=== PATIENT | female | born 1955 | race Caucasian/White ===

== ENCOUNTER 2016-07-16 14:05 | Emergency (ER) | payer MEDICAID ==
[~2016-07-16] VITALS: Ht 160 cm; Wt 114.4 kg
[~2016-07-16 14:05] MED LIST: ASPI1TAB69 PO; BLOOD GLUCOSE T1 TES; BUME1TAB PO; DICL100T PO; FAMO1TAB37 PO; GABA300C5 PO; LEVO150T7 PO; LORA10TA PO; METF500T PO; ONETKIT; PRAV20TA PO
[2016-07-16 14:12] VITALS: BP 133/86; PULSE 71; RESP 18; TEMP 98.6; O2SAT 97
--- NOTE | 2016-07-16 14:42 | PD ---
HPI Chief Complaint: Injury Time Seen by Provider: 14:37 Travel History International Travel<30 days: No Contact w/Intl Traveler<30days: No Traveled to known affect area: No History of Present Illness HPI Patient is a 61-year-old female with chief complaint of right knee pain. She states last evening her cat tripped her when she was walking in the door and she fell. She states that she caught herself somewhat on a futon first but did hit on the anterior knee on the ground which was hardwood floor. She is had pain since. No weakness, paresthesias or laxity. She has been able to bear weight but it is painful to do so. Aleve has helped somewhat. This morning the pain radiates up the anterior right thigh and into the right hip. She denies any pain in the abdomen or back. Remote history of patellar chondral repair arthroscopically, no history of hip repair/replacement. She did not hit her head or lose consciousness. PFSH Past Medical History Asthma: Yes High Cholesterol: Yes Diabetes: Yes Patient Takes Glucophage: Yes GERD: Yes Hypertension: Yes Tetanus Vaccination: < 5 Years Influenza Vaccination: Yes ?: Not Menopausal: Yes Past Surgical History Cholecystectomy: Yes Tonsillectomy: Yes (& adenoids) Social History Alcohol Use: No Tobacco Use: No Substance Use: No Allergies-Medications (Allergen,Severity, Reaction): Coded Allergies: Flagyl (Verified Allergy, Severe, Rash, 07/16/16) Reported Meds & Prescriptions Reported Meds & Active Scripts Active Bumetanide 1 Mg Tab 1 Mg PO BID Pepcid (Famotidine) 20 Mg Tab 20 Mg PO BID Metformin (Metformin HCl) 500 Mg Tab 500 Mg PO BIDPC With meals Reported Diclofenac Sodium ER 24 HR (Diclofenac Sodium) 100 Mg Rubio 100 Mg PO DAILY Aspirin 81 Mg Tabdr 81 Mg PO DAILY Gabapentin 300 Mg Cap 300 Mg PO TID Loratadine 10 Mg Tab 10 Mg PO DAILY Pravachol (Pravastatin) 20 Mg Tab 20 Mg PO DAILY Levothyroxine (Levothyroxine Sodium) 150 Mcg Tab 150 Mcg PO DAILY Review of Systems Except as stated in HPI: all other systems reviewed are Neg Physical Exam Narrative GENERAL: Well-developed and well-nourished adult female in no acute distress. SKIN: Warm and dry. Good turgor without tenting. HEAD: Normocephalic and atraumatic. EYES: PERRL bilaterally, 5mm. EOMI bilaterally. No injection or icterus present. No proptosis. Lids without edema or erythema. CARDIOVASCULAR: Regular rate and rhythm without murmurs, rubs, clicks or gallops. Dorsalis pedis and posterior tibial pulses 2+ bilaterally. Cap refill less than 2 seconds distal tip of all toes of right foot. No pedal edema. RESPIRATORY: Clear to auscultation bilaterally with symmetrical rise and fall, no distress or use of accessory muscles. GASTROINTESTINAL: Non-tender, non-distended. Normal bowel sounds all 4 quadrants. No masses or organomegaly present. MUSCULOSKELETAL: Right knee has no appreciable edema however there is significant redundancy of soft tissues making landmarks difficult to assess. Patient's range of motion of flexion and extension is normal, and flexion I'm able to palpate the patella which is point tender. No fibular head tenderness. There is no increased laxity of the knee. Palpation of the calf and femur reveals no tenderness, right ankle has no tenderness or loss of range of motion. Palpation of the right inguinal region does reproduce some pain however there is no leg length discrepancy or rotation. No pelvic instability or pain with pelvic rocking. No pain with Palpation of the lumbosacral spine. Patient freely moving all four extremities spontaneously. Extremities without clubbing, cyanosis, or edema. No obvious deformities. NEUROLOGIC: CN II-XII grossly intact. Awake and alert. 5/5 bilateral hip flexion, hip extension, knee flexion, knee extension, plantar and dorsiflexion. Sensation intact to the distal tip of all toes of right foot. Normal speech. PSYCHIATRIC: Appropriate mood and affect; insight and judgment normal. Data Data Last Documented VS Vital Signs Date Time Temp Pulse Resp B/P Pulse Ox O2 Delivery O2 Flow Rate FiO2 07/16/16 14:12 98.6 71 18 133/86 97 Orders Hip, Uni(Ap&Lat) W Ap Pelvis (07/16/16 14:36) Knee, Complete (4vws) (07/16/16 14:36) Crutches (07/16/16 15:09) Splint Or Brace Apply/Monitor (07/16/16 15:09) MDM Medical Decision Making Medical Screen Exam Complete: Yes Emergency Medical Condition: Yes Differential Diagnosis Knee contusion versus hip strain versus Sprain versus patellar fracture versus knee sprain Narrative Course She is a 7-year-old female with mechanical fall last evening onto the patella on the right. She has point tenderness region. Other point tenderness difficult to access secondary to body habitus. She has normal range of motion and is neurovascularly intact. Sling she's having pain. There is no leg length discrepancy or hip or pelvic instability. She has been weightbearing. Ordered x-ray of the right hip, AP pelvis and right knee. Both x-rays are negative for fracture or dislocation. No joint effusion in the knee. The same patient likely has knee contusion and hip strain. We'll give Anup wrap and recommended to see anti-inflammatories and Tylenol, ice and elevation.See discharge paperwork for further instructions. The plan was discussed with the patient who acknowledged their understanding and agreement. Reinforced the follow-up with primary care is critically important. Patient instructed on emergent conditions that should prompt return to ED. Diagnosis Primary Impression: Contusion of right knee Qualified Code: S80.01XA - Contusion of right knee, initial encounter Additional Impression: Strain of hip Qualified Code: S76.011A - Strain of hip, right, initial encounter Patient Instructions: Contusion in Adults (ED), General Instructions, Hip Sprain (ED) Additional Instructions: OTC ibuprofen or Tylenol as needed Apply ice every 1 to 2 hours as needed for pain Avoid maneuvers that aggravate pain Keep ANUP bandage on while being active or using extremity Use crutches when walking to avoid pressure on joint Elevate when at rest Be aware that may take several weeks for sprains to heal fully Follow-up with PCP in 2-3 days Return to the ED for any acute worsening of symptoms Disposition: 01 DISCHARGE HOME Condition: Stable Price Mead III Jul 16, 2016 14:41
--- NOTE | 2016-07-16 15:06 | RADHPO ---
EXAM DATE/TIME: 07/16/2016 14:50 [facility] COMPARISON: HIP RIGHT (AP&LAT 2/3VWS) W AP PELVIS, July 16, 2016, 14:47. INDICATIONS : Right knee pain after falling. MEDICAL HISTORY : None. SURGICAL HISTORY : None. ENCOUNTER: Initial ACUITY: 2 days PAIN SCORE: 10/10 LOCATION: Right anterior knee FINDINGS: Four view examination of the right knee demonstrates no evidence of fracture or dislocation. Bony mi neralization is normal. The articular surfaces are intact. The suprapatellar soft tissues have a no rmal configuration. CONCLUSION: No acute disease. Jackelyn Wang MD on July 16, 2016 at 15:05 Board Certified Radiologist. This report was verified electronically.
--- NOTE | 2016-07-16 15:06 | RADHPO ---
EXAM DATE/TIME: 07/16/2016 14:47 [facility] COMPARISON: CHEST PA & LAT, March 22, 2014, 15:23. INDICATIONS : Right hip pain after falling. MEDICAL HISTORY : None. SURGICAL HISTORY : None. ENCOUNTER: Initial ACUITY: 2 days PAIN SCORE: 7/10 LOCATION: Right lateral hip FINDINGS: Examination of the right hip was performed with AP Pelvis. The primary and secondary trabecular chandrika amirah of the femoral neck is intact. The hip joint is of normal width without significant sclerosis or bony hypertrophy. The acetabulum is grossly intact. CONCLUSION: No acute disease. Jackelyn Wang MD on July 16, 2016 at 15:04 Board Certified Radiologist. This report was verified electronically.
[2016-08-11] MEDS ORDERED: BUME1TAB PO (18:03)
[2016-09-13] MEDS ORDERED: BUME1TAB PO (11:17)
[2016-10-18] MEDS ORDERED: BUME1TAB PO (13:18)
[2016-10-25] MEDS ORDERED: MEDR4PAK PO (10:45)
[2016-11-11] MEDS ORDERED: PRAV20TA PO (20:20)
[2016-11-16] MEDS ORDERED: BUME1TAB PO (15:06)
[2016-11-18] MEDS ORDERED: SUMA50TA2 PO (15:56)
[2016-12-09] MEDS ORDERED: METF500T PO (12:13)
[2016-12-15] MEDS ORDERED: BUME1TAB PO (15:20)
[2016-12-27] MEDS ORDERED: LYRI75CA PO (14:29)
== END 2016-07-16 15:20 | disposition home or self-care (01) ==
LOC: PHEFT 14:05
DX: S80.01XA Contusion of right knee, initial encounter (principal); S76.011A Strain of muscle, fascia and tendon of right hip, initial encounter; E78.00 Pure hypercholesterolemia, unspecified; E11.9 Type 2 diabetes mellitus without complications; I10 Essential (primary) hypertension; K21.9 Gastro-esophageal reflux disease without esophagitis; W01.0XXA Fall on same level from slipping, tripping and stumbling without subsequent striking against object, initial encounter; Y92.009 Unspecified place in unspecified non-institutional (private) residence as the place of occurrence of the external cause; Y99.8 Other external cause status
CPT/HCPCS: 73502; 73564; 99283; E0113

== ENCOUNTER → 2017-08-18 | Outpatient (CLI) | payer MEDICAID ==
[~2017-08-18] MED LIST changes: +ALBUAER3 INH; +ASPI1TAB57 PO; -ASPI1TAB69 PO; +BECL80AE3 INH; -BLOOD GLUCOSE T1 TES; -DICL100T PO; -GABA300C5 PO; +LOMO2.5T PO; -LORA10TA PO; +LYRI200C PO; +METF1000 PO; -METF500T PO; -ONETKIT; +SUMA50TA2 PO; +ZOFR8TAB4 SL; +ZOSTINJ SQ; +[UNRECOGNIZED DRUG - OTHER] PO
--- NOTE | 2017-08-23 09:28 | RSPPFT ---
DATE OF PROCEDURE: 08/18/17 COMMENTS: Spirometry with a forced vital capacity of 2.5, FEV1 of 1.9, FEV1/FVC ratio at 78%. Slow vital capacity is 86% of predicted. TLC is 85%. Diffusion capacity is 73% of predicted and normal when corrected for alveolar volume. A non-significant response to acutely inhaled bronchodilator noted. IMPRESSION: 1. No evidence of airways obstruction or restriction. 2. Mildly reduced diffusion capacity but normal when corrected for alveolar volume. 3. Non-significant response to acutely inhaled bronchodilator.
== END ==
LOC: PHRSP 07:18
PROVIDERS: ATTEND Internal Medicine Sleep Medicine
DX: R06.89 Other abnormalities of breathing (principal)
CPT/HCPCS: 94060; 94726; 94729

== ENCOUNTER 2017-09-04 14:37 | Emergency (ER) | payer MEDICAID ==
[~2017-09-04] VITALS: Ht 160 cm; Wt 114.1 kg
[~2017-09-04 14:37] MED LIST changes: -LOMO2.5T PO; -ZOFR8TAB4 SL
[2017-09-04 15:09] VITALS: BP 129/60; PULSE 102; RESP 16; TEMP 98.6; O2SAT 98
[2017-09-04] MEDS ORDERED: SODIUM CHLORID 0.9% 500 ML INJ 500 ML IV ONE (16:15)
[2017-09-04] MEDS ORDERED: ONDANSETRON HCL 4 MG/2 ML VIAL IVP ONE (16:15)
[2017-09-04] MEDS ORDERED: SODIUM CHLORIDE 0.9% FLUSH 10 ML FLUSH IV FLUSH PRN (16:15)
[2017-09-04] MEDS ORDERED: MORPHINE SULFATE 4 MG/ML INJ IV PUSH ONE (16:15)
--- NOTE | 2017-09-04 16:15 | PD ---
HPI Chief Complaint: GI Complaint Time Seen by Provider: 16:12 Travel History International Travel<30 days: No Contact w/Intl Traveler<30days: No Traveled to known affect area: No History of Present Illness HPI c/o nausea, vomiting and diarrhea over the past 2 days , no alleviating factors..aggravated by dringking or eating.l...denies any assoc factors ssucha as fever/cough/runny nose/rash/barber/cp/abdpain/backpain.....does however have crampy abd pain, nonrad, diffuse , only occurs with diarrhea episodes, resolves afterwards. States allergy to Flagyl Past medical history significant for hypothyroid, hypertension, hypercholesterolemia, hyperlipidemia, asthma, hiatal hernia, diabetes, cholecystectomy osteotomy and arthroscopic surgeries. PFSH Past Medical History Hx Anticoagulant Therapy: Yes (asa 81mg) Arthritis: Yes (osteo) Asthma: Yes Cardiovascular Problems: Yes (htn on meds) High Cholesterol: Yes Diabetes: Yes (type 2) Patient Takes Glucophage: Yes GERD: Yes Hiatal Hernia: Yes Hypertension: Yes Musculoskeletal: Yes (osteotomy) Respiratory: Yes (asthma) Thyroid Disease: Yes Tetanus Vaccination: > 5 Years Influenza Vaccination: Yes ?: Not Menopausal: Yes Past Surgical History Cholecystectomy: Yes Tonsillectomy: Yes (& adenoids) Social History Alcohol Use: No Tobacco Use: No Substance Use: No Allergies-Medications (Allergen,Severity, Reaction): Coded Allergies: metronidazole (Unverified Allergy, Severe, Rash, 09/04/17) Reported Meds & Prescriptions Reported Meds & Active Scripts Active Lomotil (Diphenoxylate-Atropine) 2.5-0.025 Mg Tab 1 Tab PO Q6H PRN Zofran Odt (Ondansetron Odt) 8 Mg Tab 8 Mg SL Q8H PRN Proair Hfa 8.5 GM Inh (Albuterol Sulfate) 90 Mcg/Act Aer 2 Puff INH Q6H PRN 108 mcg/actuation Sm Loratadine Allergy Rel (Loratadine) 10 Mg Tab 10 Mg PO DAILY Bumetanide 1 Mg Tab 1 Mg PO BID Sumatriptan (Sumatriptan Succinate) 50 Mg Tab 50 Mg PO ONCE PRN If a satisfactory response has not been obtained at 2 hours, a second dose may be administered Pepcid (Famotidine) 20 Mg Tab 20 Mg PO BID Levothyroxine (Levothyroxine Sodium) 150 Mcg Tab 150 Mcg PO DAILY Pravachol (Pravastatin) 20 Mg Tab 20 Mg PO DAILY Qvar Inh (Beclomethasone Dipropionate) 80 Mcg/Act Aero 2 Puff INH BID Metformin (Metformin HCl) 1,000 Mg Tab 1,000 Mg PO BIDPC With meals Lyrica (Pregabalin) 200 Mg Cap 200 Mg PO TID Reported Aspirin 81 (Aspirin) 81 Mg Tabdr 81 Mg PO DAILY Review of Systems General / Constitutional: No: Fever Eyes: No: Visual changes HENT: No: Headaches Cardiovascular: No: Chest Pain or Discomfort Respiratory: No: Shortness of Breath Gastrointestinal: Positive: Nausea, Vomiting, Diarrhea, Abdominal Pain Genitourinary: No: Dysuria Musculoskeletal: No: Pain Skin: No Rash Neurologic: No: Weakness Psychiatric: No: Depression Endocrine: No: Polydipsia Hematologic/Lymphatic: No: Easy Bruising Physical Exam Narrative GENERAL: SKIN: Warm and dry. HEAD: Atraumatic. Normocephalic. EYES: Pupils equal and round. No scleral icterus. No injection or drainage. ENT: No nasal bleeding or discharge. Mucous membranes pink and moist. NECK: Trachea midline. No JVD. CARDIOVASCULAR: Regular rate and rhythm. RESPIRATORY: No accessory muscle use. Clear to auscultation. Breath sounds equal bilaterally. GASTROINTESTINAL: Abdomen soft, non-tender, nondistended. MUSCULOSKELETAL: Extremities without clubbing, cyanosis, or edema. No obvious deformities. NEUROLOGICAL: Awake and alert. No obvious cranial nerve deficits. Motor grossly within normal limits. Five out of 5 muscle strength in the arms and legs. Normal speech. PSYCHIATRIC: Appropriate mood and affect; insight and judgment normal. Data Data Last Documented VS Orders Orders Complete Blood Count With Diff (09/04/17 16:15) Comprehensive Metabolic Panel (09/04/17 16:15) Lipase (09/04/17 16:15) Urinalysis - C+S If Indicated (09/04/17 16:15) Ct Abd/Pel W/O Iv Contrast (09/04/17 16:15) Iv Access Insert/Monitor (09/04/17 16:15) Ecg Monitoring (09/04/17 16:15) Oximetry (09/04/17 16:15) NPO (09/04/17 16:15) Morphine Inj (Morphine Inj) (09/04/17 16:15) Ondansetron Inj (Zofran Inj) (09/04/17 16:15) Sodium Chloride 0.9% Flush (Ns Flush) (09/04/17 16:15) Sodium Chlorid 0.9% 500 Ml Inj (Ns 500 M (09/04/17 16:15) Promethazine Inj (Phenergan Inj) (09/04/17 17:30) Ed Discharge Order (09/04/17 18:50) Labs Laboratory Tests Test 09/04/17 16:40 09/04/17 16:50 Urine Color YELLOW Urine Turbidity SL CLOUDY Urine pH 5.0 Urine Specific [place] GREATER/EQUAL 1.030 Urine Protein NEG mg/dL Urine Glucose (UA) NEG mg/dL Urine Ketones NEG mg/dL Urine Occult Blood TRACE Urine Nitrite NEG Urine Bilirubin NEG Urine Urobilinogen 0.2 MG/DL Urine Leukocyte Esterase NEG Urine WBC 3-5 /hpf Urine Squamous Epithelial Cells 0-5 /hpf Urine Bacteria FEW /hpf Urine Mucus FEW /lpf Microscopic Urinalysis Comment CULT NOT INDICATED White Blood Count 5.6 TH/MM3 Red Blood Count 3.86 MIL/MM3 Hemoglobin 13.1 GM/DL Hematocrit 37.8 % Mean Corpuscular Volume 97.8 FL Mean Corpuscular Hemoglobin 33.9 PG Mean Corpuscular Hemoglobin Concent 34.7 % Red Cell Distribution Width 18.5 % Platelet Count 240 TH/MM3 Mean Platelet Volume 7.9 FL Neutrophils (%) (Auto) 88.5 % Lymphocytes (%) (Auto) 7.5 % Monocytes (%) (Auto) 1.9 % Eosinophils (%) (Auto) 1.7 % Basophils (%) (Auto) 0.4 % Neutrophils # (Auto) 5.0 TH/MM3 Lymphocytes # (Auto) 0.4 TH/MM3 Monocytes # (Auto) 0.1 TH/MM3 Eosinophils # (Auto) 0.1 TH/MM3 Basophils # (Auto) 0.0 TH/MM3 CBC Comment AUTO DIFF Differential Comment AUTO DIFF CONFIRMED Ovalocytes 2+ Blood Urea Nitrogen 14 MG/DL Creatinine 0.99 MG/DL Random Glucose 113 MG/DL Total Protein 8.0 GM/DL Albumin 4.1 GM/DL Calcium Level 8.6 MG/DL Alkaline Phosphatase 153 U/L Aspartate Amino Transf (AST/SGOT) 28 U/L Alanine Aminotransferase (ALT/SGPT) 34 U/L Total Bilirubin 1.0 MG/DL Sodium Level 138 MEQ/L Potassium Level 4.2 MEQ/L Chloride Level 107 MEQ/L Carbon Dioxide Level 26.2 MEQ/L Anion Gap 5 MEQ/L Estimat Glomerular Filtration Rate 57 ML/MIN Lipase 84 U/L MDM Medical Decision Making Medical Screen Exam Complete: Yes Emergency Medical Condition: Yes Medical Record Reviewed: Yes Differential Diagnosis Gastroenteritis versus hepatitis versus pancreatitis Narrative Course CBC shows no leukocytosis, no anemia, and a normal platelet count. UA does not show any evidence of UTI Complete metabolic profile shows normal electrolytes, normal kidney function, normal liver function tests, normal lipase, normal alk phos normal bilirubin. Patient CT shows only minimal diverticulosis without active diverticulitis. A hiatal hernia. Also fat-containing umbilical hernia. And right renal cysts as per radiology report. Diagnosis Primary Impression: GASTROENTERITIS Patient Instructions: Gastroenteritis (ED), General Instructions Scripts Diphenoxylate-Atropine (Lomotil) 2.5-0.025 Mg Tab 1 TAB PO Q6H Y for DIARRHEA, #8 TAB 0 Refills Prov: Broderick Nava MD 09/04/17 Ondansetron Odt (Zofran Odt) 8 Mg Tab 8 MG SL Q8H Y for NAUSEA OR VOMITING, #15 TAB 0 Refills Prov: Broderick Nava MD 09/04/17 Disposition: 01 DISCHARGE HOME Condition: Stable Broderick Nava MD Sep 04, 2017 16:15
[2017-09-04 17:01] LABS: BILIRUBIN, URINE NEG (NEG); BLOOD, URINE TRACE (NEG); GLUCOSE,URINE NEG (NEG); KETONE, URINE NEG (NEG); NITRITE,URINE NEG (NEG); URINE COLOR YELLOW (YELLW/STRAW); URINE LEUKOCYTE ESTERASE NEG (NEG)
[2017-09-04 17:03] LABS: BASOPHIL % 0.4 % (0.0-2.0); EOSINOPHIL # 0.1 TH/MM3 (0-0.4); EOSINOPHIL % 1.7 % (0.0-4.0); HEMATOCRIT 37.8 % (35.0-46.0); HEMOGLOBIN 13.1 GM/DL (11.6-15.3); LYMPH % 7.5 % (9.0-44.0); LYMPHOCYTE # 0.4 TH/MM3 (1.0-4.8); MEAN CELL VOLUME 97.8 FL (80.0-100.0); MEAN CORPUSCULAR HEMOGLOBIN 33.9 PG (27.0-34.0); MEAN CORPUSCULAR HGB CONC 34.7 % (32.0-36.0); MEAN PLATELET VOLUME 7.9 FL (7.0-11.0); MONO % 1.9 % (0.0-8.0); MONOCYTE # 0.1 TH/MM3 (0-0.9); NEUT % 88.5 % (16.0-70.0); PLATELET COUNT 240 TH/MM3 (150-450); RED BLOOD COUNT 3.86 MIL/MM3 (4.00-5.30); RED CELL DISTRIBUTION WIDTH 18.5 % (11.6-17.2); WHITE BLOOD COUNT 5.6 TH/MM3 (4.0-11.0)
[2017-09-04 17:05] VITALS: BP 148/86; PULSE 87; RESP 18; O2SAT 99
[2017-09-04 17:08] LABS: BACTERIA, URINE FEW /hpf; MUCUS URINE FEW /lpf (OCC); SQUAMOUS EPITHELIAL CELL URINE 0-5 /hpf (0-5)
[2017-09-04 17:12] LABS: CHLORIDE 107 MEQ/L (98-107); SODIUM (NA) 138 MEQ/L (136-145)
[2017-09-04 17:14] VITALS: O2SAT 98
[2017-09-04 17:16] LABS: ALBUMIN 4.1 GM/DL (3.4-5.0); BICARBONATE 26.2 MEQ/L (21.0-32.0); CALCIUM 8.6 MG/DL (8.5-10.1); GLUCOSE,RANDOM 113 MG/DL (74-106)
[2017-09-04 17:17] LABS: BLOOD UREA NITROGEN 14 MG/DL (7-18)
[2017-09-04 17:19] LABS: ALT (GPT) 34 U/L (10-53); AST (GOT) 28 U/L (15-37); CREATININE 0.99 MG/DL (0.50-1.00); GLOMERULAR FILTRATION RATE 57 ML/MIN (>89)
[2017-09-04 17:22] LABS: ALKALINE PHOSPHATASE 153 U/L (45-117)
--- NOTE | 2017-09-04 17:22 | RADRPT ---
EXAM DATE/TIME: 09/04/2017 16:52 [facility] COMPARISON: No previous studies available for comparison. INDICATIONS : Epigastric pain. ORAL CONTRAST: No oral contrast ingested. RADIATION DOSE: 24.79 CTDIvol (mGy) MEDICAL HISTORY : Hernia, hiatal. Hypertension. Diabetes. SURGICAL HISTORY : Cholecystectomy. ENCOUNTER: Initial ACUITY: 1 week PAIN SCALE: 5/10 LOCATION: upper quadrant TECHNIQUE: Volumetric scanning of the abdomen and pelvis was performed. Using automated exposure control and ad justment of the mA and/or kV according to patient size, radiation dose was kept as low as reasonably achievable to obtain optimal diagnostic quality images. DICOM format image data is available electro nically for review and comparison. FINDINGS: Patient is status post cholecystectomy. The lung bases are clear. The osseous structures are intact. No pleural or pericardial effusions a small sliding hiatal hernia is noted. Liver, pancreas, spleen, adrenals, left kidney unremarkable. Exophytic cyst right midpole kidney posteriorly measuring 1.8 cm. No adenopathy or aneurysm. Urinary bladder, uterus and ovaries are unremarkable. A few scattered col onic diverticuli are present. Appendix normal. Fat containing hernia. CONCLUSION: 1. Minimal diverticulosis without diverticulitis. 2. Hiatal hernia. 3. Fat containing umbilical hernia. 4. Right renal cysts. Eligio Zavala MD on September 04, 2017 at 17:19 Board Certified Radiologist. This report was verified electronically.
[2017-09-04] MEDS ORDERED: PROMETHAZINE INJ 25 MG/ML VIAL IM ONE (17:30)
[2017-09-04 18:00] LABS: OVALOCYTES 2+ (NORMAL)
[2017-09-04] MEDS ORDERED: ZOFR8TAB4 SL (18:33)
[2017-09-04] MEDS ORDERED: LOMO2.5T PO (18:33)
== END 2017-09-04 19:05 | disposition home or self-care (01) ==
LOC: PHED 14:37
DX: K52.9 Noninfective gastroenteritis and colitis, unspecified (principal); M19.90 Unspecified osteoarthritis, unspecified site; J45.909 Unspecified asthma, uncomplicated; I10 Essential (primary) hypertension; E78.00 Pure hypercholesterolemia, unspecified; E07.9 Disorder of thyroid, unspecified; E11.9 Type 2 diabetes mellitus without complications; Z79.84 Long term (current) use of oral hypoglycemic drugs; Z79.82 Long term (current) use of aspirin
CPT/HCPCS: 74176; 80053; 81001; 83690; 85025; 96361; 96372; 96374; 96375; 99284; J2270; J2405; J2550; J7040

== ENCOUNTER 2017-12-25 16:57 | Emergency (ER) | payer MEDICAID ==
[~2017-12-25] VITALS: Ht 160 cm; Wt 130.0 kg
[~2017-12-25 16:57] MED LIST changes: +LOMO2.5T PO; +ZOFR8TAB4 SL; -ZOSTINJ SQ
[2017-12-25 17:02] VITALS: BP 101/74; PULSE 95; RESP 18; TEMP 98.1; O2SAT 95
[2017-12-25] MEDS ORDERED: XARE20TA PO (17:27)
[2017-12-25] MEDS ORDERED: ACETAMINOPHEN/HYDROcodone 325 MG/5 MG TAB PO ONE (17:45)
--- NOTE | 2017-12-25 18:13 | PD ---
HPI Chief Complaint: Injury Time Seen by Provider: 17:07 Travel History International Travel<30 days: No Contact w/Intl Traveler<30days: No Traveled to known affect area: No History of Present Illness HPI 76-year-old female presents the ED for evaluation of 10/10 right knee pain. Onset around 3 this afternoon the patient twisted and fell while attempting to get out of the car. She endorses hearing and feeling a "pop" at the time. She has been minimally ambulatory on the knee. Denies any previous injury to the area. Denies numbness, tingling, weakness, limitations to range of motion or giving way. Denies any her head or loss of consciousness. Treated at home with Tylenol with no improvement of symptoms. PFSH Past Medical History Hx Anticoagulant Therapy: Yes Arthritis: Yes (osteo) Asthma: Yes Cardiovascular Problems: Yes (htn on meds) High Cholesterol: Yes Diabetes: Yes (type 2) Patient Takes Glucophage: Yes Deep Vein Thrombosis: Yes (LLE) GERD: Yes Hiatal Hernia: Yes Hypertension: Yes Musculoskeletal: Yes (osteotomy) Respiratory: Yes (asthma, sleep apnea) Thyroid Disease: Yes Tetanus Vaccination: Unknown Influenza Vaccination: Yes ?: Not Menopausal: Yes Past Surgical History Cholecystectomy: Yes Tonsillectomy: Yes (& adenoids) Social History Alcohol Use: No Tobacco Use: No Substance Use: No Allergies-Medications (Allergen,Severity, Reaction): Coded Allergies: metronidazole (Unverified Allergy, Severe, Rash, 12/25/17) Reported Meds & Prescriptions Reported Meds & Active Scripts Active Bariatric Rollator/Extra (Device) 1 Mis Mis Ea .XX DIRECTED Tylenol (Acetaminophen) 325 Mg Tab 650 Mg PO Q6H PRN [place] (Hydrocodone-Acetaminophen) 5 Mg-325 Mg Tab 1 Tab PO Q6H PRN Sm Loratadine Allergy Rel (Loratadine) 10 Mg Tab 10 Mg PO DAILY Bumetanide 1 Mg Tab 1 Mg PO BID Sumatriptan (Sumatriptan Succinate) 50 Mg Tab 50 Mg PO ONCE PRN If a satisfactory response has not been obtained at 2 hours, a second dose may be administered Pepcid (Famotidine) 20 Mg Tab 20 Mg PO BID Levothyroxine (Levothyroxine Sodium) 150 Mcg Tab 150 Mcg PO DAILY Pravachol (Pravastatin) 20 Mg Tab 20 Mg PO DAILY Qvar Inh (Beclomethasone Dipropionate) 80 Mcg/Act Aero 2 Puff INH BID Metformin (Metformin HCl) 1,000 Mg Tab 1,000 Mg PO BIDPC With meals Lyrica (Pregabalin) 200 Mg Cap 200 Mg PO TID Reported Xarelto (Rivaroxaban) 20 Mg Tab 20 Mg PO DAILY Review of Systems Except as stated in HPI: all other systems reviewed are Neg Physical Exam Narrative GENERAL: Morbidly obese white female in no acute distress. SKIN: Focused skin assessment warm/dry. HEAD: Normocephalic. EYES: No scleral icterus. No injection or drainage. NECK: Supple, trachea midline. No JVD or lymphadenopathy. CARDIOVASCULAR: Regular rate and rhythm without murmurs, gallops, or rubs. RESPIRATORY: Breath sounds equal bilaterally. No accessory muscle use. GASTROINTESTINAL: Abdomen soft, non-tender, nondistended. MUSCULOSKELETAL: No cyanosis, or edema. FOCUSED RIGHT LOWER EXTREMITY EXAM: 2+ DP pulse. Well-healed arthroscopic scars on the anterior aspect of the knee. Tenderness to palpation in the patella. Tenderness to palpation of the lateral knee joint. Varus and valgus stress testing positive. Patient is able to extend to 0 and flex to nearly 90 , this elicits pain. Drawer testing negative. Neurovascularly intact distally. BACK: Nontender without obvious deformity. No CVA tenderness. Data Data Last Documented VS Vital Signs Date Time Temp Pulse Resp B/P (MAP) Pulse Ox O2 Delivery O2 Flow Rate FiO2 12/25/17 17:23 Room Air 12/25/17 17:02 98.1 95 18 101/74 (83) 95 Orders Orders Acetamin-Hydrocod 325-5 Mg ([place] 5-325 (12/25/17 17:45) Knee, Complete (4vws) (12/25/17 17:40) Ice/Cold Pack (12/25/17 17:40) Anup Bandage (12/25/17 18:55) Ed Discharge Order (12/25/17 19:00) MDM Medical Decision Making Medical Screen Exam Complete: Yes Emergency Medical Condition: Yes Differential Diagnosis Patellar fracture versus tibial plateau fracture versus internal derangement versus other Narrative Course 76-year-old female presents the ED for evaluation of 10/10 right knee pain. Onset around 3 this afternoon the patient twisted and fell while attempting to get out of the car. She reports feeling hearing a pop at the time. Vitals reviewed. Physical exam reveals a morbidly obese white female no acute distress. She does have tenderness over the lateral aspect of the knee and varus/valgus stress testing is positive. Ice pack was applied. Patient was administered 5 mg [place]. X-ray reveals no acute bony injury. I suspect internal derangement. However given the patient's body habitus a knee immobilizer is not possible at this time. The knee was wrapped with 2 six-inch aces. Patient's prescribed a bariatric walker, short course of [place]. She is instructed to follow-up with the orthopedist tomorrow for further evaluation. She indicated understanding the instructions and is agreeable to care plan. The patient stable discharged home. Diagnosis Primary Impression: Right knee pain Qualified Codes: M25.561 - Pain in right knee Additional Impression: Internal derangement of right knee Referrals: Austyn Baez MD Additional Instructions: Rest, ice, elevate the extremity. Apply ice no longer than 10-15 minutes per hour a few times a day. Extra strength Tylenol as prescribed, as needed for pain rated 1 through 5. [place] as prescribed as needed for pain rated 6 through 10. Minimal ambulation with the walker at home. Call Dr. Baez's office tomorrow for an appointment this week. Follow up with orthopedist. Return to the ED for worsening symptoms or any urgent or emergent medical condition. Med/Other Pt SpecificInfo: Prescription(s) given Scripts Bariatric Rollator/Extra (Bariatric Rollator/Extra) 1 Mis Mis EA .XX DIRECTED, #1 Prov: Cristine Juarez MD 12/25/17 Acetaminophen (Tylenol) 325 Mg Tab 650 MG PO Q6H Y for PAIN SCALE 1 TO 5, #15 TAB 0 Refills Prov: Cristine Juarez MD 12/25/17 Hydrocodone-Acetaminophen ([place]) 5 Mg-325 Mg Tab 1 TAB PO Q6H Y for PAIN, #12 TAB 0 Refills Prov: Cristine Juarez MD 12/25/17 Disposition: 01 DISCHARGE HOME Condition: Stable Catalina Aranda Dec 25, 2017 18:13
--- NOTE | 2017-12-25 18:52 | RADRPT ---
EXAM DATE: 12/25/2017 6:02 PM EDT AGE/SEX: 62 years / Female INDICATIONS: Twisted right knee CLINICAL DATA: This is the patient's initial encounter. Patient reports that signs and symptoms have been present for 1 day and indicates a pain score of 9/10. MEDICAL/SURGICAL HISTORY: Diabetes mellitus type II. asthma None. COMPARISON: [facility], KNEE RIGHT COMPLETE (4VWS), 07/16/2016. . FINDINGS: Bony structures are intact and in normal alignment. Moderate osteoarthritis. Osseous density is chicho l. Soft tissues are unremarkable. No radiopaque foreign bodies seen. CONCLUSION: Moderate osteoarthritis. No acute bony abnormality. Electronically signed by: Abisai Franks MD 12/25/2017 6:50 PM EDT
[2017-12-25] MEDS ORDERED: NORC5TAB PO ×2 (18:56→18:58)
[2017-12-25] MEDS ORDERED: TYLE325T PO ×2 (18:57→18:58)
[2017-12-25] MEDS ORDERED: BARIATRIC ROLLA1 MIS (19:07)
== END 2017-12-25 19:16 | disposition home or self-care (01) ==
LOC: PHEFT 16:57
DX: M23.91 Unspecified internal derangement of right knee (principal); J45.909 Unspecified asthma, uncomplicated; E78.00 Pure hypercholesterolemia, unspecified; E11.9 Type 2 diabetes mellitus without complications; K21.9 Gastro-esophageal reflux disease without esophagitis; I10 Essential (primary) hypertension; M19.90 Unspecified osteoarthritis, unspecified site; W18.39XA Other fall on same level, initial encounter; Z86.718 Personal history of other venous thrombosis and embolism; Z79.84 Long term (current) use of oral hypoglycemic drugs; Z79.01 Long term (current) use of anticoagulants
CPT/HCPCS: 73564; 99283

== ENCOUNTER 2018-01-05 12:10 | Inpatient (IN) ==
[2018-01-05 18:49] LABS: Activated Partial Thrombo Time 27.5 sec (24.3-30.1); Prothrombin Time 10.3 sec (9.8-11.6)
[2018-01-05 18:51] LABS: Baso % (Auto) 0.4 % (0.0-2.0); Eos # (Auto) 0.1 th/mm3 (0.0-0.4); Eos % (Auto) 2.5 % (0.0-4.0); Hematocrit 31.6 % (35.0-46.0); Hemoglobin 10.9 gm/dL (11.6-15.3); Lymph # (Auto) 1.3 th/mm3 (1.0-4.8); Lymph % (Auto) 25.7 % (9.0-44.0); Mean Corpuscular HGB Conc 34.6 % (32.0-36.0); Mean Corpuscular Hemoglobin 31.8 pg (27.0-34.0); Mean Corpuscular Volume 91.8 fL (80.0-100.0); Mean Platelet Volume 8.4 fL (7.0-11.0); Mono # (Auto) 0.3 th/mm3 (0.0-0.9); Mono % (Auto) 6.2 % (0.0-8.0); Neut # (Auto) 3.4 th/mm3 (1.8-7.7); Neut % (Auto) 65.2 % (16.0-70.0); Platelet Count 238 th/mm3 (150-450); Red Blood Count 3.44 mil/mm3 (4.00-5.30); Red Cell Distribution Width 15.7 % (11.6-17.2); White Blood Count 5.2 th/mm3 (4.0-11.0)
[2018-01-05 18:58] LABS: Albumin 3.6 g/dL (3.4-5.0); Anion Gap 11 meq/L (5-15); Aspartate Aminotransferase 17 U/L (15-37); Blood Urea Nitrogen 13 mg/dL (7-18); Calcium 8.6 mg/dL (8.5-10.1); Chloride 107 meq/L (98-107); Glomerular Filtration Rate 71 mL/min (>89); Glucose,Random 78 mg/dL (74-106); Lipase 39 U/L (73-393); Potassium 3.4 meq/L (3.5-5.1); Sodium 143 meq/L (136-145)
[2018-01-05 18:59] LABS: Alanine Aminotransferase 26 U/L (10-53)
[2018-01-05 19:01] LABS: Alkaline Phosphatase 131 U/L (45-117); Total Protein 7.3 g/dL (6.4-8.2)
--- NOTE | 2018-01-05 19:02 | ED ---
HPI General Chief complaint: GI Bleed Stated complaint: gi Time Seen by Provider: 01/05/18 17:21 Source: patient Mode of arrival: ambulatory Limitations: no limitations History of Present Illness HPI narrative: 62-year-old female presents emergency department for evaluation of 2 episodes of bloody stools that occurred this morning. Says that she was in the hospital couple of days ago for nausea and vomiting, had imaging and labs and was discharged home. Says that she felt great up until this morning when she had the bloody stools. She denies fever, chills, nausea, vomiting, diarrhea. She denies abdominal pain. She says that there was no stool in the toilet when she had a bowel movement and it was only blood. She also noticed a "blood clot" when wiping. She stopped the Xarelto on Tuesday because of the symptoms she had several days ago. Note that she is taken Xarelto for DVT that occured in October after a flight. She has had a decreased appetite today. She denies lightheadedness or dizziness. Related Data Home Medications Medication Instructions Recorded Confirmed albuterol sulfate [ProAir HFA] 2 puff INHALATION Q6H PRN 01/02/18 01/05/18 beclomethasone dipropionate [Qvar 2 puff INHALATION QAM 01/02/18 01/05/18 RediHaler] bumetanide 1 mg PO BID 01/02/18 01/05/18 coenzyme Q10 [CoQ-10] 100 mg PO DAILY 01/02/18 01/05/18 famotidine 20 mg PO BID 01/02/18 01/05/18 levothyroxine 150 mcg PO DAILY 01/02/18 01/05/18 loratadine 10 mg PO DAILY 01/02/18 01/05/18 metformin 1,000 mg PO BID 01/02/18 01/05/18 pravastatin 20 mg PO DAILY 01/02/18 01/05/18 pregabalin [Lyrica] 200 mg PO TID 01/02/18 01/05/18 sumatriptan succinate 50 mg PO Q2-4H PRN 01/02/18 01/05/18 rivaroxaban 20 mg PO DAILY 01/05/18 01/05/18 Allergies Allergy/AdvReac Type Severity Reaction Status Date / Time metronidazole Allergy Intermediate Rash Verified 01/05/18 12:22 Review of Systems Except as stated in HPI: all other systems reviewed are negative [facility] Medical History Medical History DVT (deep venous thrombosis) (Chronic) GERD (gastroesophageal reflux disease) (Acute) Hyperlipidemia (Acute) Anxiety (Acute) Asthma (Acute) Back pain (Acute) Cataract (Acute) Chronic kidney disease (Acute) Depression (Acute) Diabetes mellitus (Acute) Hypertension (Acute) Hypothyroid (Acute) Lymphedema (Acute) Neuropathy (Acute) Surgical History Surgical History History of cholecystectomy (Resolved) Social History Social History Substance History: No History of Abuse Second Hand Smoke Exposure: No Smoking Status: Former smoker Tobacco Type: Cigarettes How Often Do You Have a Drink Containing Alcohol: Never Recent Travel in [facility] within the Last 8 Weeks: No Recent Out of Country Travel within the Last 8 Weeks: No Immunization History Tetanus Immunization: >5 Years Hx Influenza Vaccine This Season: Yes Exam Narrative Exam Narrative: GENERAL: Well-developed, well-nourished in no apparent distress SKIN: Focused skin assessment warm/dry. Decubitus area with intertrigo versus breakdown of skin possibly decubitus ulcer stage I HEAD: Atraumatic. Normocephalic. EYES: Pupils equal and round. No scleral icterus. No injection or drainage. ENT: No nasal bleeding or discharge. Mucous membranes pink and moist. NECK: Trachea midline. No JVD. CARDIOVASCULAR: Regular rate and rhythm. No murmur appreciated. RESPIRATORY: No accessory muscle use. Clear to auscultation. Breath sounds equal bilaterally. GASTROINTESTINAL: Abdomen soft, non-tender, nondistended. Hepatic and splenic margins not palpable. Rectal exam performed with nurseServando in the room. Upon initial examination there is some margarita bright red blood at the rectum. Stool is black heme positive MUSCULOSKELETAL: No obvious deformities. No clubbing. No cyanosis. No edema. No TTP to BLE NEUROLOGICAL: Awake and alert. No obvious cranial nerve deficits. Motor grossly within normal limits. Normal speech. PSYCHIATRIC: Appropriate mood and affect; insight and judgment normal. GI Rectal Exam: heme positive stool (black stool, heme positive) Course Initial Documented Vital Signs Temperature 97.8 F 01/05/18 12:18 Pulse Rate 84 01/05/18 12:18 Respiratory Rate 18 01/05/18 12:18 Blood Pressure 173/70 H 01/05/18 12:18 Pulse Oximetry 95 01/05/18 12:18 Last Documented Vital Signs Temperature 98.0 F 01/06/18 08:00 Pulse Rate 84 01/06/18 08:00 Respiratory Rate 20 01/06/18 08:00 Blood Pressure 148/79 H 01/06/18 08:00 Pulse Oximetry 95 01/06/18 08:00 Medical Decision Making [facility] Narrative Medical decision making narrative: 62y female with a history of a provoked DVT presents emergency department for the second time this week for evaluation of 2 episodes of bright red bleeding per rectum. Says she had a bowel movement today which was bright red and is concerned because she has been on Xarelto for the last several months. She denies fever, chills, nausea, vomiting, diarrhea, lightheadedness, dizziness, abdominal pain. Says she stopped her Xarelto Tuesday because of the abdominal pain she had previously. She has had a decreased appetite over the last few days. Vital signs are stable. Physical exam findings are unremarkable except for the rectal exam. No obvious external hemorrhoids present. Hemoccult positive stool. Black stool. Blood present at the perianal area. After review the EMR, it appears the patient was here couple days ago for nausea , vomiting and abdominal pain. Ct performed and found scattered diverticulosis, benign right renal cyst. CBC with mild anemia. Labs are stable but concerning because of the rectal bleeding and history of Xarelto use. I discussed with my attending as well who recommended admission for monitoring. I spoke with Dr. Smart who agreed to the admission. Differential Diagnosis Differential Diagnosis: Hemorrhoids, colitis, diarrhea Lab Data Result diagrams: 01/06/18 07:50 01/06/18 02:01 Lab Results 01/05/18 01/05/18 01/05/18 Range/Units 17:40 17:40 17:40 WBC 5.2 (4.0-11.0) th/mm3 RBC 3.44 L (4.00-5.30) mil/mm3 Hgb 10.9 L (11.6-15.3) gm/dL Hct 31.6 L (35.0-46.0) % MCV 91.8 (80.0-100.0) fL MCH 31.8 (27.0-34.0) pg MCHC 34.6 (32.0-36.0) % RDW 15.7 (11.6-17.2) % Plt Count 238 (150-450) th/mm3 MPV 8.4 (7.0-11.0) fL Neut % (Auto) 65.2 (16.0-70.0) % Lymph % (Auto) 25.7 (9.0-44.0) % [place] % (Auto) 6.2 (0.0-8.0) % Eos % (Auto) 2.5 (0.0-4.0) % Baso % (Auto) 0.4 (0.0-2.0) % Neut # (Auto) 3.4 (1.8-7.7) th/mm3 Lymph # (Auto) 1.3 (1.0-4.8) th/mm3 [place] # (Auto) 0.3 (0.0-0.9) th/mm3 Eos # (Auto) 0.1 (0.0-0.4) th/mm3 Baso # (Auto) 0.0 (0.0-0.2) th/mm3 WBC Differential . Differential Comment Auto diff final PT 10.3 (9.8-11.6) sec INR 1.0 Ratio APTT 27.5 (24.3-30.1) sec Sodium 143 (136-145) meq/L Potassium 3.4 L (3.5-5.1) meq/L Chloride 107 (98-107) meq/L Carbon Dioxide 25.0 (21.0-32.0) meq/L Anion Gap 11 (5-15) meq/L BUN 13 (7-18) mg/dL Creatinine 0.82 (0.50-1.00) mg/dL Estimated GFR 71 L (>89) mL/min Random Glucose 78 (74-106) mg/dL Calcium 8.6 (8.5-10.1) mg/dL Total Bilirubin 1.4 H (0.2-1.0) mg/dL AST 17 (15-37) U/L ALT 26 (10-53) U/L Alkaline Phosphatase 131 H (45-117) U/L Total Protein 7.3 D (6.4-8.2) g/dL Albumin 3.6 (3.4-5.0) g/dL Lipase 39 L (73-393) U/L Urine Color (Yellw/Straw) Urine Clarity (Clear) Urine pH (5.0-8.5) Ur Specific Parsons (1.002-1.035) Urine Protein (Neg-Trace) mg/dL Urine Glucose (UA) (Negative) mg/dL Urine Ketones (Negative) mg/dL Urine Occult Blood (Negative) Urine Nitrate (Negative) Urine Bilirubin (Negative) Urine Urobilinogen (Less than 2) mg/dL Ur Leukocyte Esterase (Negative) Urine WBC (0-5) /hpf Ur Squamous Epith Cells (0-5) /hpf Amorphous Sediment (None) /hpf Urine Bacteria (None) /hpf Urine Mucus (Occasional) /lpf Micro UA Comment Urine Culture Comments Blood Type Blood Type Recheck Antibody Screen 01/05/18 01/06/18 01/06/18 Range/Units 17:40 02:01 02:01 WBC 5.3 (4.0-11.0) th/mm3 RBC 3.38 L (4.00-5.30) mil/mm3 Hgb 10.5 L (11.6-15.3) gm/dL Hct 30.5 L (35.0-46.0) % MCV 90.3 (80.0-100.0) fL MCH 31.2 (27.0-34.0) pg MCHC 34.5 (32.0-36.0) % RDW 15.7 (11.6-17.2) % Plt Count 245 (150-450) th/mm3 MPV 7.9 (7.0-11.0) fL Neut % (Auto) 62.4 (16.0-70.0) % Lymph % (Auto) 28.3 (9.0-44.0) % [place] % (Auto) 6.0 (0.0-8.0) % Eos % (Auto) 2.9 (0.0-4.0) % Baso % (Auto) 0.4 (0.0-2.0) % Neut # (Auto) 3.3 (1.8-7.7) th/mm3 Lymph # (Auto) 1.5 (1.0-4.8) th/mm3 [place] # (Auto) 0.3 (0.0-0.9) th/mm3 Eos # (Auto) 0.2 (0.0-0.4) th/mm3 Baso # (Auto) 0.0 (0.0-0.2) th/mm3 WBC Differential . Differential Comment Auto diff final PT 10.7 (9.8-11.6) sec INR 1.1 Ratio APTT (24.3-30.1) sec Sodium (136-145) meq/L Potassium (3.5-5.1) meq/L Chloride (98-107) meq/L Carbon Dioxide (21.0-32.0) meq/L Anion Gap (5-15) meq/L BUN (7-18) mg/dL Creatinine (0.50-1.00) mg/dL Estimated GFR (>89) mL/min Random Glucose (74-106) mg/dL Calcium (8.5-10.1) mg/dL Total Bilirubin (0.2-1.0) mg/dL AST (15-37) U/L ALT (10-53) U/L Alkaline Phosphatase (45-117) U/L Total Protein (6.4-8.2) g/dL Albumin (3.4-5.0) g/dL Lipase (73-393) U/L Urine Color (Yellw/Straw) Urine Clarity (Clear) Urine pH (5.0-8.5) Ur Specific Parsons (1.002-1.035) Urine Protein (Neg-Trace) mg/dL Urine Glucose (UA) (Negative) mg/dL Urine Ketones (Negative) mg/dL Urine Occult Blood (Negative) Urine Nitrate (Negative) Urine Bilirubin (Negative) Urine Urobilinogen (Less than 2) mg/dL Ur Leukocyte Esterase (Negative) Urine WBC (0-5) /hpf Ur Squamous Epith Cells (0-5) /hpf Amorphous Sediment (None) /hpf Urine Bacteria (None) /hpf Urine Mucus (Occasional) /lpf Micro UA Comment Urine Culture Comments Blood Type B Positive Blood Type Recheck Required Antibody Screen Negative 01/06/18 01/06/18 01/06/18 Range/Units 02:01 02:40 07:50 WBC 4.6 (4.0-11.0) th/mm3 RBC 3.22 L (4.00-5.30) mil/mm3 Hgb 10.1 L (11.6-15.3) gm/dL Hct 29.1 L (35.0-46.0) % MCV 90.6 (80.0-100.0) fL MCH 31.4 (27.0-34.0) pg MCHC 34.7 (32.0-36.0) % RDW 15.7 (11.6-17.2) % Plt Count 234 (150-450) th/mm3 MPV 8.4 (7.0-11.0) fL Neut % (Auto) 62.9 (16.0-70.0) % Lymph % (Auto) 25.6 (9.0-44.0) % [place] % (Auto) 7.4 (0.0-8.0) % Eos % (Auto) 3.5 (0.0-4.0) % Baso % (Auto) 0.6 (0.0-2.0) % Neut # (Auto) 2.9 (1.8-7.7) th/mm3 Lymph # (Auto) 1.2 (1.0-4.8) th/mm3 [place] # (Auto) 0.3 (0.0-0.9) th/mm3 Eos # (Auto) 0.2 (0.0-0.4) th/mm3 Baso # (Auto) 0.0 (0.0-0.2) th/mm3 WBC Differential . Differential Comment Auto diff final PT (9.8-11.6) sec INR Ratio APTT (24.3-30.1) sec Sodium 144 (136-145) meq/L Potassium 3.2 L (3.5-5.1) meq/L Chloride 108 H (98-107) meq/L Carbon Dioxide 26.1 (21.0-32.0) meq/L Anion Gap 10 (5-15) meq/L BUN 13 (7-18) mg/dL Creatinine 0.75 (0.50-1.00) mg/dL Estimated GFR 79 L (>89) mL/min Random Glucose 91 (74-106) mg/dL Calcium 8.2 L (8.5-10.1) mg/dL Total Bilirubin 1.5 H (0.2-1.0) mg/dL AST 16 (15-37) U/L ALT 26 (10-53) U/L Alkaline Phosphatase 121 H (45-117) U/L Total Protein 6.8 (6.4-8.2) g/dL Albumin 3.8 (3.4-5.0) g/dL Lipase 48 L (73-393) U/L Urine Color Colorless (Yellw/Straw) Urine Clarity Clear (Clear) Urine pH 5.0 (5.0-8.5) Ur Specific [place] 1.005 (1.002-1.035) Urine Protein Negative (Neg-Trace) mg/dL Urine Glucose (UA) Negative (Negative) mg/dL Urine Ketones Trace H (Negative) mg/dL Urine Occult Blood Small H (Negative) Urine Nitrate Negative (Negative) Urine Bilirubin Negative (Negative) Urine Urobilinogen Less than 2 (Less than 2) mg/dL Ur Leukocyte Esterase Trace H (Negative) Urine WBC Less than 1 (0-5) /hpf Ur Squamous Epith Cells 1 (0-5) /hpf Amorphous Sediment Rare H (None) /hpf Urine Bacteria Rare H (None) /hpf Urine Mucus Few H (Occasional) /lpf Micro UA Comment Culture not ind Urine Culture Comments Culture not ind Blood Type Blood Type Recheck Antibody Screen Discharge Plan Discharge Disposition Patient Disposition: 30 Still Patient Discharge Condition Condition: Stable Discharge Details Discharge Problem: Bright red rectal bleeding, Hx of shelter use of blood thinners Physicians Team ED Provider: Evan Lyon ED Midlevel Provider: Vida Drew Primary Care Provider: Pramod Parisi Attending Provider: Reji Gan Other Providers: Angela Amezcua Status ED Status: Left Department Discharge Information Discharge Date/Time: 01/06/18 00:00
--- NOTE | 2018-01-05 21:53 | P.HPFP ---
History of Present Illness Service: Medicine, COUNTS INCLUDE 234 BEDS AT THE [facility] Primary Care Physician: Pramod Parisi MD, R3 History of Present Illness: 62-year-old female, past medical history of DVT, severe GERD, and hilar hernia presents with bright red blood per rectum 2 episodes today following 3 days of vomiting and diarrhea. Pt got up and went to the bathroom this morning and saw fresh blood in the toilet, at 11:00AM and 11:30AM. Denies any pain with this event. She has been sick with diarrhea and vomiting since Tuesday, and came into the ED Tuesday and was given meds for nausea. She was only able to eat a bowl of chicken soup yesterday (kept it down) but otherwise has not eaten since Tuesday. She had noticed when she was having diarrhea she felt burning in the rectum. Toilet was filled with blood and she noticed a couple of small blood clots. She does not know of any history of hemorrhoids. She has had severe GERD over the past year and had an endoscopy done 2 months ago which revealed a hiatal hernia, with no other abnormalities. Her last colonoscopy was 5 years ago and she follows closely with her GI. Denies any dizzyness/ SOB. She denies any chest pain or fever/chills. There was no inciting event preceding her illness. She does not recall any abnormal food she has eaten or change in medications. For the DVT the patient got an October 2017, she has been on Xarelto but stopped it Tuesday because she started to feel sick. She was vomiting 5-6x / day and having diarrhea 8x/day x 3 days. On Tuesday the Hemoccult in the ED was positive for blood. She has a hiatal hernia and has acid reflux. Has been taking famotidine and PPI . Endoscopy 2 months ago for severe GERD (Dr. Luann Hernandez). - Diagnosis (1) Bright red rectal bleeding (2) History of pulmonary embolism (3) Diabetes (4) Hypothyroidism (5) CKD (chronic kidney disease) stage 3, GFR 30-59 ml/min (6) Hypertension Inpatient Certification: I certify that the inpatient services were ordered in accordance with Medicare regulations governing the order. This includes certification that hospital inpatient services are reasonable and necessary and in the case of services not specified as inpatient-only under 42 CFR 419.22(n), that they are appropriately provided as inpatient services in accordance to with the 2-midnight benchmark under 43 CFR 412.3(e) Review of Systems Constitutional: Reports fatigue, Reports lack of energy, Denies chills, Denies excessive sweating, Denies fever(s), Denies headache(s), Denies night sweats, Denies weight gain, Denies weight loss Eyes: Denies blurry vision Ears, Nose, Mouth, and Throat: Denies abnormal hearing Cardiovascular: Denies chest pain, Denies fast heart rate, Denies irregular heart rhythm Respiratory: Denies cough, Denies pain with cough Gastrointestinal: Denies abdominal pain Genitourinary: Denies abnormal periods Musculoskeletal: Denies abnormal walking, Denies back pain Neurologic: Denies frequent falls, Denies tingling/numbness/burning sensations, Denies tremor(s) Psychiatric: Denies abnormal sleep pattern, Denies memory loss, Denies mood swings Hematologic/Lymphatic: Reports easy bruising (chronic), Denies easy bleeding Allergic/Immunologic: Reports GI upset with certain foods (milk gives diarrhea) PMFSH - History History Provided By: Patient, Family Member - Medical History Medical History: Medical History (Last Updated 01/06/18 @ 01:43 by Kristan Walker MD, R2) Diabetes Hyperlipidemia Lymphedema Anxiety Asthma Back pain Cataract Chronic kidney disease Depression Diabetes mellitus History of dysuria Hypercholesteremia Hypertension Hypothyroid Leukopenia Lymphedema Neuropathy - Surgical History Surgical History: Surgical History (Last Reviewed 01/06/18 @ 01:43 by Kristan Walker MD, R2) History of cholecystectomy (Resolved) - Family History Family History: Family History (Last Reviewed 01/06/18 @ 01:43 by Kristan Walker MD, R2) Other Family history of colon cancer - Tobacco History Smoking Status: Former smoker Tobacco Type: Cigarettes - Alcohol History How Often Do You Have a Drink Containing Alcohol: Never - Substance Use History Substance History: No History of Abuse - Travel History Recent Travel in the [place] Within the Last 8 Weeks: No Recent Travel Out of the Country Within the Last 8 Weeks: No - Immunization History Tetanus Immunization: >5 Years Hx Influenza Vaccine This Season: Yes Medications and Allergies Active Medications: Active Medications Sodium Chloride (Ns Flush) 2 ml IV.FLUSH PRN PRN PRN Reason: FLUSH AFTER USING IV ACCESS Allergies Allergy/AdvReac Type Severity Reaction Status Date / Time metronidazole Allergy Intermediate Rash Verified 01/05/18 12:22 Home Medications Medication Instructions Recorded Confirmed Type albuterol sulfate [ProAir HFA] 2 puff INHALATION Q6H PRN 01/02/18 01/05/18 History beclomethasone dipropionate [Qvar 2 puff INHALATION QAM 01/02/18 01/05/18 History RediHaler] bumetanide 1 mg PO BID 01/02/18 01/05/18 History coenzyme Q10 [CoQ-10] 100 mg PO DAILY 01/02/18 01/05/18 History famotidine 20 mg PO BID 01/02/18 01/05/18 History levothyroxine 150 mcg PO DAILY 01/02/18 01/05/18 History loratadine 10 mg PO DAILY 01/02/18 01/05/18 History metformin 1,000 mg PO BID 01/02/18 01/05/18 History pravastatin 20 mg PO DAILY 01/02/18 01/05/18 History pregabalin [Lyrica] 200 mg PO TID 01/02/18 01/05/18 History sumatriptan succinate 50 mg PO Q2-4H PRN 01/02/18 01/05/18 History rivaroxaban 20 mg PO DAILY 01/05/18 01/05/18 History Exam Vital signs: Vital Signs 01/05/18 12:18 01/05/18 17:28 01/05/18 17:29 Temperature 97.8 F Pulse Rate 84 80 Respiratory Rate 18 15 Blood Pressure 173/70 H 149/67 H Pulse Oximetry 95 95 95 Intake & Output 01/05/18 01/05/18 01/06/18 06:59 18:59 06:59 Weight 123.831 kg - Constitutional no acute distress, morbidly obese - Routine HEENT Exam Head: Present: normocephalic, atraumatic Eye: Present: EOMI, PERRL ENT: Present: mucous membranes moist - Routine Respiratory Exam Present: CTA bilaterally - Routine Cardiovascular Exam Present: RRR, S1, S2 - Routine Abdominal Exam Present: soft, normoactive bowel sounds (no tenderness on deep palpation of any quadrant, no rebound tenderness or peritoneal signs, no masses on palpation) - Routine Exam Patient deferred: external exam, perineal exam (patient deferred, exam with hemoccult done in ED) - Routine Extremities Exam Present: edema (chronic lymphedema, non-pitting) - Routine Skin Exam Present: intact, warm - Routine Neurological Exam Present: alert, oriented X3, CN II-XII intact Results - Labs Result diagrams: 01/05/18 17:40 01/05/18 17:40 Abnormal lab results 01/05/18 01/05/18 Range/Units 17:40 17:40 RBC 3.44 L (4.00-5.30) mil/mm3 Hgb 10.9 L (11.6-15.3) gm/dL Hct 31.6 L (35.0-46.0) % Potassium 3.4 L (3.5-5.1) meq/L Estimated GFR 71 L (>89) mL/min Total Bilirubin 1.4 H (0.2-1.0) mg/dL Alkaline Phosphatase 131 H (45-117) U/L Lipase 39 L (73-393) U/L Short CBC 01/05/18 Range/Units 17:40 WBC 5.2 (4.0-11.0) th/mm3 Hgb 10.9 L (11.6-15.3) gm/dL Hct 31.6 L (35.0-46.0) % Plt Count 238 (150-450) th/mm3 BMP 01/05/18 17:40 Sodium 143 Potassium 3.4 L Chloride 107 Carbon Dioxide 25.0 BUN 13 Creatinine 0.82 Calcium 8.6 Liver Function 01/05/18 Range/Units 17:40 Total Bilirubin 1.4 H (0.2-1.0) mg/dL AST 17 (15-37) U/L ALT 26 (10-53) U/L Alkaline Phosphatase 131 H (45-117) U/L Albumin 3.6 (3.4-5.0) g/dL Caprini VTE Risk Assessment Caprini VTE Risk Assessment: No/Low Risk (score <= 1) Caprini Risk Assessment Model: Point Value = 1 Point Value = 2 Point Value = 3 Point Value = 5 Age 41-60 Minor surgery BMI > 25 kg/m2 Swollen legs Varicose veins or History of unexplained or recurrent spontaneous Oral contraceptives or hormone replacement Sepsis (< 1 month) Serious lung disease, including pneumonia (< 1 month) Abnormal pulmonary function Acute myocardial infarction Congestive heart failure (< 1 month) History of inflammatory bowel disease Medical patient at bed rest Age 61-74 Arthroscopic surgery Major open surgery (> 45 min) Laparoscopic surgery (> 45 min) Malignancy Confined to bed (> 72 hours) Immobilizing plaster cast Central venous access Age >= 75 History of VTE Family history of VTE Factor V Leiden Prothrombin [id number] Lupus anticoagulant Anticardiolipin antibodies Elevated serum homocysteine Heparin-induced thrombocytopenia Other congenital or acquired thrombophilia Stroke (< 1 month) Elective arthroplasty Hip, pelvis, or leg fracture Acute spinal cord injury (< 1 month) Prophylaxis Regimen: Total Risk Factor Score Risk Level Prophylaxis Regimen 0-1 Low Early ambulation 2 Moderate Order ONE of the following: *Sequential Compression Device (SCD) *Heparin 5000 units SQ BID 3-4 Higher Order ONE of the following medications: *Heparin 5000 units SQ TID *Enoxaparin/Lovenox 40 mg SQ daily (WT < 150 kg, CrCl > 30 mL/min) *Enoxaparin/Lovenox 30 mg SQ daily (WT < 150 kg, CrCl > 10-29 mL/min) *Enoxaparin/Lovenox 30 mg SQ BID (WT < 150 kg, CrCl > 30 mL/min) AND/OR *Sequential Compression Device (SCD) 5 or more Highest Order ONE of the following medications: *Heparin 5000 units SQ TID (Preferred with Epidurals) *Enoxaparin/Lovenox 40 mg SQ daily (WT < 150 kg, CrCl > 30 mL/min) *Enoxaparin/Lovenox 30 mg SQ daily (WT < 150 kg, CrCl > 10-29 mL/min) *Enoxaparin/Lovenox 30 mg SQ BID (WT < 150 kg, CrCl > 30 mL/min) AND *Sequential Compression Device (SCD) Assessment and Plan - Assessment (1) Bright red rectal bleeding Code(s): K62.5 - Hemorrhage of anus and rectum Status: Acute Plan: Hemodynamically stable. Hemoglobin 10.9 from 10.1 on 01/02 Follow-up stat H&H, continue to trend every 6 hours Differential includes upper versus lower GI bleed versus diverticulosis versus gastroenteritis History of GERD and dark stools supports upper GI bleed Elderly status with diarrhea and bright red blood in stool supports lower GI bleed Hemoccult in ED positive, no sign of hemorrhoids or fissure, no active bleeding Continue telemetry Follow-up vitals every 4 hours Follow-up eyes nose Follow-up GI consult recommendations, patient's private GI has been consulted N.p.o. at midnight Type and screen, coags ordered Follow-up CBC, CMP in a.m. with H&H trend IV Protonix [address] from 01/02/18: Scattered diverticulosis of the descending and sigmoid colon. No acute pathology. (2) History of pulmonary embolism Code(s): Z86.711 - Personal history of pulmonary embolism Status: Chronic Plan: Due to acute bleeding, continue to hold Xarelto SCDs (3) Diabetes Code(s): E11.9 - Type 2 diabetes mellitus without complications Status: Acute Plan: Hold home metformin Glucose 78, Will add sliding scale when patient is advanced to p.o. Follow-up hemoglobin A1c (4) Hypothyroidism Code(s): E03.9 - Hypothyroidism, unspecified Status: Chronic Plan: Continue current meds (5) CKD (chronic kidney disease) stage 3, GFR 30-59 ml/min Code(s): N18.3 - Chronic kidney disease, stage 3 (moderate) Status: Chronic Plan: Continue to follow-up with orchid transplanter as outpatient. Avoid NSAIDs and other nephrotoxic medications. (6) Hypertension Code(s): I10 - Essential (primary) hypertension Status: Chronic Plan: Continue home medication Follow-up BPs - Assessment and Plan Discussed Condition With: Dr. Marrero Discharge Planning: Pending GI consult and evaluation, pending stable H&H confirmed (3) Diabetes Qualifiers: Diabetes mellitus type: type 2
[2018-01-05] MEDS ORDERED: BECLOMETHASONE DIPROPIONATE INHALATION SCH (22:00)
[2018-01-05] MEDS: Famotidine 20 MG Tablet PO SCH (22:17)
[2018-01-05] MEDS ORDERED: Temazepam 15 MG Capsule PO PRN (22:17)
[2018-01-05] MEDS ORDERED: Bisacodyl 10 MG Supp RECTAL PRN (22:17)
[2018-01-06] MEDS: Pantoprazole Inj 40 MG Vial IV.PUSH SCH (02:08)
[2018-01-06 02:14] LABS: Baso % (Auto) 0.4 % (0.0-2.0); Eos # (Auto) 0.2 th/mm3 (0.0-0.4); Eos % (Auto) 2.9 % (0.0-4.0); Hematocrit 30.5 % (35.0-46.0); Hemoglobin 10.5 gm/dL (11.6-15.3); Lymph # (Auto) 1.5 th/mm3 (1.0-4.8); Lymph % (Auto) 28.3 % (9.0-44.0); Mean Corpuscular HGB Conc 34.5 % (32.0-36.0); Mean Corpuscular Hemoglobin 31.2 pg (27.0-34.0); Mean Corpuscular Volume 90.3 fL (80.0-100.0); Mean Platelet Volume 7.9 fL (7.0-11.0); Mono # (Auto) 0.3 th/mm3 (0.0-0.9); Neut # (Auto) 3.3 th/mm3 (1.8-7.7); Neut % (Auto) 62.4 % (16.0-70.0); Platelet Count 245 th/mm3 (150-450); Red Blood Count 3.38 mil/mm3 (4.00-5.30); Red Cell Distribution Width 15.7 % (11.6-17.2); White Blood Count 5.3 th/mm3 (4.0-11.0)
[2018-01-06 02:24] LABS: INR 1.1 Ratio; Prothrombin Time 10.7 sec (9.8-11.6)
[2018-01-06 02:48] LABS: Alanine Aminotransferase 26 U/L (10-53); Albumin 3.8 g/dL (3.4-5.0); Anion Gap 10 meq/L (5-15); Aspartate Aminotransferase 16 U/L (15-37); Blood Urea Nitrogen 13 mg/dL (7-18); Calcium 8.2 mg/dL (8.5-10.1); Carbon Dioxide 26.1 meq/L (21.0-32.0); Chloride 108 meq/L (98-107); Glomerular Filtration Rate 79 mL/min (>89); Glucose,Random 91 mg/dL (74-106); Lipase 48 U/L (73-393); Potassium 3.2 meq/L (3.5-5.1); Sodium 144 meq/L (136-145)
[2018-01-06 02:50] LABS: Alkaline Phosphatase 121 U/L (45-117); Total Protein 6.8 g/dL (6.4-8.2)
[2018-01-06 05:55] LABS: Amorphous Sediment,Urine Rare /hpf; Bacteria,Urine Rare /hpf; Bilirubin,Urine Negative (Negative); Clarity,Urine Clear (Clear); Color,Urine Colorless (Yellw/Straw); Glucose,Urine (UA) Negative (Negative); Leukocyte Esterase,Urine Trace (Negative); Mucus,Urine Few /lpf (Occasional); Nitrite,Urine Negative (Negative); Specific Gravity,Urine 1.005 (1.002-1.035); Squamous Epithelial Cell,Urine 1 /hpf (0-5)
[2018-01-06] MEDS: Levothyroxine 50 MCG Tablet PO SCH (06:03)
[2018-01-06] MEDS ORDERED: Potassium Chloride 10 MEQ ER Capsule PO ONE (06:25)
[2018-01-06] MEDS: Famotidine 20 MG Tablet PO SCH ×2 (08:25→20:46)
[2018-01-06] MEDS: Sod Chloride 0.9% Inj 1,000 ML IV.CONT SCH ×3 (08:27→17:52)
[2018-01-06] MEDS ORDERED: BECLOMETHASONE INH SCH (09:00)
[2018-01-06] MEDS ORDERED: Non-Formulary Drug (Coenzyme Q10 [Coq-10] 100 MG) PO SCH (09:00)
[2018-01-06] MEDS ORDERED: Senna/Docusate Sodium 8.6/50 MG Tablet PO SCH (09:00)
[2018-01-06] MEDS ORDERED: Dextrose 50% in Water 50 ML Vial IV.PUSH PRN (09:22)
[2018-01-06 10:07] LABS: Baso % (Auto) 0.6 % (0.0-2.0); Eos # (Auto) 0.2 th/mm3 (0.0-0.4); Eos % (Auto) 3.5 % (0.0-4.0); Hematocrit 29.1 % (35.0-46.0); Hemoglobin 10.1 gm/dL (11.6-15.3); Lymph # (Auto) 1.2 th/mm3 (1.0-4.8); Lymph % (Auto) 25.6 % (9.0-44.0); Mean Corpuscular HGB Conc 34.7 % (32.0-36.0); Mean Corpuscular Hemoglobin 31.4 pg (27.0-34.0); Mean Corpuscular Volume 90.6 fL (80.0-100.0); Mean Platelet Volume 8.4 fL (7.0-11.0); Mono # (Auto) 0.3 th/mm3 (0.0-0.9); Mono % (Auto) 7.4 % (0.0-8.0); Neut # (Auto) 2.9 th/mm3 (1.8-7.7); Neut % (Auto) 62.9 % (16.0-70.0); Platelet Count 234 th/mm3 (150-450); Red Blood Count 3.22 mil/mm3 (4.00-5.30); Red Cell Distribution Width 15.7 % (11.6-17.2); White Blood Count 4.6 th/mm3 (4.0-11.0)
--- NOTE | 2018-01-06 10:14 | P.HPFP ---
History of Present Illness Primary Care Physician: Pramod Parisi MD, R3 History of Present Illness: No acute events overnight and patient is feeling relatively well this morning. She did have a loose bowel movement overnight that she noted to have a small amount of blood in it, however this has decreased in amount from her previous bloody bowel movements. She does feel hungry this morning and denies any abdominal pain. She denies any fevers or chills. She denies any nausea or vomiting. She denies any chest pain or palpitations. She denies any rectal pain. In summary, this is a 62-year-old female presenting with bright red blood per rectum 2 on day of presentation. She has a history of DVT and was being treated with Xarelto, however she has discontinued this since Tuesday due to nausea/vomiting and diarrhea for several days. She says that on Tuesday she began having nausea and vomiting associated with diarrhea, however she did not note any hematemesis or melena/hematochezia until yesterday when she had 2 episodes of bright red blood in her bowel movements. She states she has been off of her Xarelto for 5 days. She has not had any abdominal pain or cramping with this. She denies any fevers or chills. She denies any nausea or vomiting. She has a hiatal hernia and has acid reflux. Has been taking famotidine and PPI . Endoscopy 2 months ago for severe GERD - Diagnosis (1) Bright red rectal bleeding (2) DVT (deep venous thrombosis) (3) Diabetes (4) Hypothyroidism (5) CKD (chronic kidney disease) stage 3, GFR 30-59 ml/min (6) Hypertension Inpatient Certification: I certify that the inpatient services were ordered in accordance with Medicare regulations governing the order. This includes certification that hospital inpatient services are reasonable and necessary and in the case of services not specified as inpatient-only under 42 CFR 419.22(n), that they are appropriately provided as inpatient services in accordance to with the 2-midnight benchmark under 43 CFR 412.3(e) Estimated Total Length of Stay (Days): 2 Plans for Post Hospital Care: Home Review of Systems All other systems reviewed negative except as stated in HPI Gastrointestinal: Reports bright, red blood in stools, Reports change in bowel habits PMFSH - History History Provided By: Patient, Family Member - Medical History Medical History: Medical History (Last Updated 01/06/18 @ 10:07 by Reji Gan MD) DVT (deep venous thrombosis) (Acute) GERD (gastroesophageal reflux disease) Hyperlipidemia Anxiety Asthma Back pain Cataract Chronic kidney disease Depression Diabetes mellitus Hypertension Hypothyroid Lymphedema Neuropathy - Surgical History Surgical History: Surgical History (Last Reviewed 01/06/18 @ 01:43 by Kristan Walker MD, R2) History of cholecystectomy (Resolved) - Family History Family History: Family History (Last Reviewed 01/06/18 @ 01:43 by Kristan Walker MD, R2) Other Family history of colon cancer - Tobacco History Second Hand Smoke Exposure: No Tobacco Use In Past 30 Days: No Smoking Status: Former smoker Tobacco Type: Cigarettes - Alcohol History How Often Do You Have a Drink Containing Alcohol: Never - Substance Use History Substance History: No History of Abuse - Travel History Recent Travel in the [facility] Within the Last 8 Weeks: No Recent Travel Out of the Country Within the Last 8 Weeks: No - Immunization History Tetanus Immunization: >5 Years Hx Influenza Vaccine This Season: Yes Medications and Allergies Active Medications: Active Medications Al Hydroxide/Mg Hydroxide (Milk Of Magnesia Liq) 30 ml PO Q12H PRN PRN Reason: Mild Constipation Bisacodyl (Dulcolax Supp) 10 mg RECTAL DAILY PRN PRN Reason: SEVERE CONSITIPATION Bumetanide (Bumex) 1 mg PO BID [facility] Last Admin: 01/06/18 08:26 Dose: 1 mg Dextrose (D50w Vial) 50 ml IV.PUSH UNSCH PRN PRN Reason: PER HYPOGLYCEMIA PROTOCOL Famotidine (Pepcid) 20 mg PO BID [facility] Last Admin: 01/06/18 08:25 Dose: 20 mg Glucagon (Glucagon Inj) 1 mg OTHER PRN PRN PRN Reason: for Hypoglycemia Protocol Sodium Chloride (Ns Inj) 1,000 mls @ 125 mls/hr IV.CONT .Q8H [facility] Last Admin: 01/06/18 08:27 Dose: 125 mls/hr Insulin Aspart (Novolog Insulin Suppl Scale Inj) 0 unit SQ ACHS [facility]; Protocol Lactulose (Lactulose Liq) 30 ml PO DAILY PRN PRN Reason: SEVERE CONSITIPATION Levothyroxine Sodium (Synthroid) 150 mcg PO DAILY@0600 [facility] Last Admin: 01/06/18 06:03 Dose: 150 mcg Ondansetron HCl (Zofran Inj) 4 mg IV.PUSH Q6H PRN PRN Reason: NAUSEA OR VOMITING Pantoprazole Sodium (Protonix Inj) 40 mg IV.PUSH Q24H [facility] Last Admin: 01/06/18 02:08 Dose: 40 mg Pt:Qvar Redihaler 0 each INH DAILY [facility] Pravastatin Sodium (Pravachol) 20 mg PO DAILY [facility] Last Admin: 01/06/18 08:26 Dose: 20 mg Senna/Docusate Sodium (Jennifer-Colace) 1 tab PO BID [facility] Last Admin: 01/06/18 08:26 Dose: 1 tab Sennosides (Senokot) 17.2 mg PO Q12H PRN PRN Reason: Moderate Constipation Sodium Chloride (Ns Flush) 2 ml IV.FLUSH PRN PRN PRN Reason: FLUSH AFTER USING IV ACCESS Temazepam (Restoril) 15 mg PO HS PRN PRN Reason: INSOMNIA Allergies Allergy/AdvReac Type Severity Reaction Status Date / Time metronidazole Allergy Intermediate Rash Verified 01/05/18 12:22 Home Medications Medication Instructions Recorded Confirmed Type albuterol sulfate [ProAir HFA] 2 puff INHALATION Q6H PRN 01/02/18 01/05/18 History beclomethasone dipropionate [Qvar 2 puff INHALATION QAM 01/02/18 01/05/18 History RediHaler] bumetanide 1 mg PO BID 01/02/18 01/05/18 History coenzyme Q10 [CoQ-10] 100 mg PO DAILY 01/02/18 01/05/18 History famotidine 20 mg PO BID 01/02/18 01/05/18 History levothyroxine 150 mcg PO DAILY 01/02/18 01/05/18 History loratadine 10 mg PO DAILY 01/02/18 01/05/18 History metformin 1,000 mg PO BID 01/02/18 01/05/18 History pravastatin 20 mg PO DAILY 01/02/18 01/05/18 History pregabalin [Lyrica] 200 mg PO TID 01/02/18 01/05/18 History sumatriptan succinate 50 mg PO Q2-4H PRN 01/02/18 01/05/18 History rivaroxaban 20 mg PO DAILY 01/05/18 01/05/18 History Exam Vital signs: Vital Signs 01/05/18 12:18 07/05/18 17:28 01/05/18 17:29 Temperature 97.8 F Pulse Rate 84 80 Respiratory Rate 18 15 Blood Pressure 173/70 H 149/67 H Pulse Oximetry 95 95 95 01/05/18 21:00 01/06/18 00:05 01/06/18 04:00 Temperature 97.8 F 97.9 F Pulse Rate 74 78 78 Respiratory Rate 16 18 18 Blood Pressure 134/66 113/71 145/77 H Pulse Oximetry 92 L 94 L 01/06/18 08:00 Temperature 98.0 F Pulse Rate 84 Respiratory Rate 20 Blood Pressure 148/79 H Pulse Oximetry 95 Intake & Output 01/05/18 01/06/18 01/06/18 18:59 06:59 18:59 Intake Total 0 / 0 Output Total 1700 / 1700 Balance -1700 / -1700 Weight 123.831 kg 127 kg Intake: Oral 0 / 0 Output: Urine 1700 / 1700 Other: Date of Last Bowel Movement 01/06/18 # Bowel Movements 0 Weight On Admission 126.9 kg - Constitutional no acute distress, morbidly obese, cooperative - Routine HEENT Exam Head: Present: normocephalic, atraumatic - Routine Neck Exam Present: supple, full ROM - Routine Respiratory Exam Present: CTA bilaterally. Absent: accessory muscle use, rhonchi, wheezes, crackles - Routine Cardiovascular Exam Present: RRR, S1, S2. Absent: murmur, gallop, rubs - Routine Abdominal Exam Present: soft, normoactive bowel sounds. Absent: tenderness, distended, rebound , guarding - Routine Extremities Exam Absent: cyanosis, clubbing, edema, calf tenderness - Routine Skin Exam Present: intact Results - Labs Result diagrams: 01/06/18 02:01 01/06/18 02:01 Abnormal lab results 01/05/18 01/05/18 01/06/18 Range/Units 17:40 17:40 02:01 RBC 3.44 L 3.38 L (4.00-5.30) mil/mm3 Hgb 10.9 L 10.5 L (11.6-15.3) gm/dL Hct 31.6 L 30.5 L (35.0-46.0) % Potassium 3.4 L (3.5-5.1) meq/L Chloride (98-107) meq/L Estimated GFR 71 L (>89) mL/min Calcium (8.5-10.1) mg/dL Total Bilirubin 1.4 H (0.2-1.0) mg/dL Alkaline Phosphatase 131 H (45-117) U/L Lipase 39 L (73-393) U/L Urine Ketones (Negative) mg/dL Urine Occult Blood (Negative) Ur Leukocyte Esterase (Negative) Amorphous Sediment (None) /hpf Urine Bacteria (None) /hpf Urine Mucus (Occasional) /lpf 01/06/18 01/06/18 Range/Units 02:01 02:40 RBC (4.00-5.30) mil/mm3 Hgb (11.6-15.3) gm/dL Hct (35.0-46.0) % Potassium 3.2 L (3.5-5.1) meq/L Chloride 108 H (98-107) meq/L Estimated GFR 79 L (>89) mL/min Calcium 8.2 L (8.5-10.1) mg/dL Total Bilirubin 1.5 H (0.2-1.0) mg/dL Alkaline Phosphatase 121 H (45-117) U/L Lipase 48 L (73-393) U/L Urine Ketones Trace H (Negative) mg/dL Urine Occult Blood Small H (Negative) Ur Leukocyte Esterase Trace H (Negative) Amorphous Sediment Rare H (None) /hpf Urine Bacteria Rare H (None) /hpf Urine Mucus Few H (Occasional) /lpf Short CBC 01/05/18 01/06/18 Range/Units 17:40 02:01 WBC 5.2 5.3 (4.0-11.0) th/mm3 Hgb 10.9 L 10.5 L (11.6-15.3) gm/dL Hct 31.6 L 30.5 L (35.0-46.0) % Plt Count 238 245 (150-450) th/mm3 BMP 01/05/18 01/06/18 17:40 02:01 Sodium 143 144 Potassium 3.4 L 3.2 L Chloride 107 108 H Carbon Dioxide 25.0 26.1 BUN 13 13 Creatinine 0.82 0.75 Calcium 8.6 8.2 L Liver Function 01/05/18 01/06/18 Range/Units 17:40 02:01 Total Bilirubin 1.4 H 1.5 H (0.2-1.0) mg/dL AST 17 16 (15-37) U/L ALT 26 26 (10-53) U/L Alkaline Phosphatase 131 H 121 H (45-117) U/L Albumin 3.6 3.8 (3.4-5.0) g/dL Urine 01/06/18 Range/Units 02:40 Urine Color Colorless (Yellw/Straw) Urine Clarity Clear (Clear) Urine pH 5.0 (5.0-8.5) Ur Specific [place] 1.005 (1.002-1.035) Urine Protein Negative (Neg-Trace) mg/dL Urine Glucose (UA) Negative (Negative) mg/dL Caprini VTE Risk Assessment Caprini VTE Risk Assessment: No/Low Risk (score <= 1) Caprini Risk Assessment Model: Point Value = 1 Point Value = 2 Point Value = 3 Point Value = 5 Age 41-60 Minor surgery BMI > 25 kg/m2 Swollen legs Varicose veins or History of unexplained or recurrent spontaneous Oral contraceptives or hormone replacement Sepsis (< 1 month) Serious lung disease, including pneumonia (< 1 month) Abnormal pulmonary function Acute myocardial infarction Congestive heart failure (< 1 month) History of inflammatory bowel disease Medical patient at bed rest Age 61-74 Arthroscopic surgery Major open surgery (> 45 min) Laparoscopic surgery (> 45 min) Malignancy Confined to bed (> 72 hours) Immobilizing plaster cast Central venous access Age >= 75 History of VTE Family history of VTE Factor V Leiden Prothrombin [id number] Lupus anticoagulant Anticardiolipin antibodies Elevated serum homocysteine Heparin-induced thrombocytopenia Other congenital or acquired thrombophilia Stroke (< 1 month) Elective arthroplasty Hip, pelvis, or leg fracture Acute spinal cord injury (< 1 month) Prophylaxis Regimen: Total Risk Factor Score Risk Level Prophylaxis Regimen 0-1 Low Early ambulation 2 Moderate Order ONE of the following: *Sequential Compression Device (SCD) *Heparin 5000 units SQ BID 3-4 Higher Order ONE of the following medications: *Heparin 5000 units SQ TID *Enoxaparin/Lovenox 40 mg SQ daily (WT < 150 kg, CrCl > 30 mL/min) *Enoxaparin/Lovenox 30 mg SQ daily (WT < 150 kg, CrCl > 10-29 mL/min) *Enoxaparin/Lovenox 30 mg SQ BID (WT < 150 kg, CrCl > 30 mL/min) AND/OR *Sequential Compression Device (SCD) 5 or more Highest Order ONE of the following medications: *Heparin 5000 units SQ TID (Preferred with Epidurals) *Enoxaparin/Lovenox 40 mg SQ daily (WT < 150 kg, CrCl > 30 mL/min) *Enoxaparin/Lovenox 30 mg SQ daily (WT < 150 kg, CrCl > 10-29 mL/min) *Enoxaparin/Lovenox 30 mg SQ BID (WT < 150 kg, CrCl > 30 mL/min) AND *Sequential Compression Device (SCD) Assessment and Plan - Assessment (1) Bright red rectal bleeding Code(s): K62.5 - Hemorrhage of anus and rectum Status: Acute Plan: Hemodynamically stable. Hemoglobin 10.9 on arrival, trending down to 10.1 throughout the night Trend H&H and replenish as needed Differential includes upper versus lower GI bleed versus diverticulosis versus gastroenteritis History of GERD and dark stools supports upper GI bleed Hemoccult in ED positive, no sign of hemorrhoids or fissure, no active bleeding Continue telemetry Follow-up GI consult recommendations, patient's private GI has been consulted N.p.o. at until evaluation by GI Type and screen, coags ordered IV Protonix [address] from 01/02/18: Scattered diverticulosis of the descending and sigmoid colon. No acute pathology. (2) DVT (deep venous thrombosis) Code(s): I82.409 - Acute embolism and thrombosis of unspecified deep veins of unspecified lower extremity Status: Chronic Plan: Due to acute bleeding, continue to hold Xarelto SCDs (3) Diabetes Code(s): E11.9 - Type 2 diabetes mellitus without complications Status: Acute Plan: Hold home metformin Glucose 78, Will add sliding scale when patient is advanced to p.o. Follow-up hemoglobin A1c (4) Hypothyroidism Code(s): E03.9 - Hypothyroidism, unspecified Status: Chronic Plan: Continue current meds (5) CKD (chronic kidney disease) stage 3, GFR 30-59 ml/min Code(s): N18.3 - Chronic kidney disease, stage 3 (moderate) Status: Chronic Plan: Continue to follow-up with feather mixer as outpatient. Avoid NSAIDs and other nephrotoxic medications. 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
--- NOTE | 2018-01-06 11:12 | P.CONGI ---
History of Present Illness Consult date: 01/06/18 Consult reason: Bright red rectal bleeding Chief complaint: Rectal Bleeding, Xarelto Use History of Present Illness: This is an obese female who was admitted to the hospital on 01/05/2018 with complaints of bright red rectal bleeding 24 hours of admission. Patient does note that she is on Xarelto for history of DVT but discontinued her medicines this past Tuesday. She did note a possible gastroenteritis with nausea vomiting and diarrhea for 7 days which subsided. She currently denies any dyspepsia and does note last EGD done August 2017 showing hiatal hernia and GERD. Patient has been on omeprazole 20 mg daily and Zantac at night which has controlled her symptoms. Patient does note history of constipation with her usual bowel movement regimen every 2-3 days. She does note some straining at times and noted the bright red blood in the toilet after defecation. Patient denies any melena stools no hematemesis no current obvious fever, no headaches and no abdominal pain. Today on 01/06/2018 patient denies any further nausea or vomiting diarrhea, or constipation today. Current labs show some anemia with hemoglobin 10.1, PT/INR 1.1, bilirubin 1.5, alkaline phosphatase 121, lipase 48. Patient denies any history of liver disease and denies any history of tobacco, alcohol, or illicit drugs. Patient denies any family history of colon cancer but does state mom of stomach cancer. Patient had colonoscopy 6-7 years ago, does not remember any obvious results. Review of Systems All other systems reviewed negative except as stated in HPI PMFSH - History History Provided By: Patient, Family Member - Medical History Medical History: Medical History (Last Updated 01/06/18 @ 10:07 by Reji Gan MD) DVT (deep venous thrombosis) (Chronic) GERD (gastroesophageal reflux disease) Hyperlipidemia Anxiety Asthma Back pain Cataract Chronic kidney disease Depression Diabetes mellitus Hypertension Hypothyroid Lymphedema Neuropathy - Surgical History Surgical History: Surgical History (Last Reviewed 01/06/18 @ 01:43 by Kristan Walker MD, R2) History of cholecystectomy (Resolved) - Family History Family History: Family History (Last Reviewed 01/06/18 @ 01:43 by Kristan Walker MD, R2) Other Family history of colon cancer - Tobacco History Second Hand Smoke Exposure: No Tobacco Use In Past 30 Days: No Smoking Status: Former smoker Tobacco Type: Cigarettes - Alcohol History How Often Do You Have a Drink Containing Alcohol: Never - Substance Use History Substance History: No History of Abuse - Travel History Recent Travel in the [place] Within the Last 8 Weeks: No Recent Travel Out of the Country Within the Last 8 Weeks: No - Immunization History Tetanus Immunization: >5 Years Hx Influenza Vaccine This Season: Yes Medications and Allergies Active Medications: Active Medications Al Hydroxide/Mg Hydroxide (Milk Of Magnesia Liq) 30 ml PO Q12H PRN PRN Reason: Mild Constipation Bisacodyl (Dulcolax Supp) 10 mg RECTAL DAILY PRN PRN Reason: SEVERE CONSITIPATION Bumetanide (Bumex) 1 mg PO BID COUNT INCLUDES THE [facility] Last Admin: 01/06/18 08:26 Dose: 1 mg Dextrose (D50w Vial) 50 ml IV.PUSH UNSCH PRN PRN Reason: PER HYPOGLYCEMIA PROTOCOL Famotidine (Pepcid) 20 mg PO BID COUNT INCLUDES THE [facility] Last Admin: 01/06/18 08:25 Dose: 20 mg Glucagon (Glucagon Inj) 1 mg OTHER PRN PRN PRN Reason: for Hypoglycemia Protocol Sodium Chloride (Ns Inj) 1,000 mls @ 125 mls/hr IV.CONT .Q8H COUNT INCLUDES THE [facility] Last Admin: 01/06/18 08:27 Dose: 125 mls/hr Insulin Aspart (Novolog Insulin Suppl Scale Inj) 0 unit SQ ACHS COUNT INCLUDES THE [facility]; Protocol Lactulose (Lactulose Liq) 30 ml PO DAILY PRN PRN Reason: SEVERE CONSITIPATION Levothyroxine Sodium (Synthroid) 150 mcg PO DAILY@0600 COUNT INCLUDES THE [facility] Last Admin: 01/06/18 06:03 Dose: 150 mcg Ondansetron HCl (Zofran Inj) 4 mg IV.PUSH Q6H PRN PRN Reason: NAUSEA OR VOMITING Pantoprazole Sodium (Protonix Inj) 40 mg IV.PUSH Q24H COUNT INCLUDES THE [facility] Last Admin: 01/06/18 02:08 Dose: 40 mg Pt:Qvar Redihaler 0 each INH DAILY COUNT INCLUDES THE [facility] Polyethylene Glycol/Electrolytes (Colyte Liq) 0 ml PO AC LUNCH COUNT INCLUDES THE [facility] Pravastatin Sodium (Pravachol) 20 mg PO DAILY COUNT INCLUDES THE [facility] Last Admin: 01/06/18 08:26 Dose: 20 mg Senna/Docusate Sodium (Jennifer-Colace) 1 tab PO BID COUNT INCLUDES THE [facility] Last Admin: 01/06/18 08:26 Dose: 1 tab Sennosides (Senokot) 17.2 mg PO Q12H PRN PRN Reason: Moderate Constipation Sodium Chloride (Ns Flush) 2 ml IV.FLUSH PRN PRN PRN Reason: FLUSH AFTER USING IV ACCESS Temazepam (Restoril) 15 mg PO HS PRN PRN Reason: INSOMNIA Allergies Allergy/AdvReac Type Severity Reaction Status Date / Time metronidazole Allergy Intermediate Rash Verified 01/05/18 12:22 Home Medications Medication Instructions Recorded Confirmed Type albuterol sulfate [ProAir HFA] 2 puff INHALATION Q6H PRN 01/02/18 01/05/18 History beclomethasone dipropionate [Qvar 2 puff INHALATION QAM 01/02/18 01/05/18 History RediHaler] bumetanide 1 mg PO BID 01/02/18 01/05/18 History coenzyme Q10 [CoQ-10] 100 mg PO DAILY 01/02/18 01/05/18 History famotidine 20 mg PO BID 01/02/18 01/05/18 History levothyroxine 150 mcg PO DAILY 01/02/18 01/05/18 History loratadine 10 mg PO DAILY 01/02/18 01/05/18 History metformin 1,000 mg PO BID 01/02/18 01/05/18 History pravastatin 20 mg PO DAILY 01/02/18 01/05/18 History pregabalin [Lyrica] 200 mg PO TID 01/02/18 01/05/18 History sumatriptan succinate 50 mg PO Q2-4H PRN 01/02/18 01/05/18 History rivaroxaban 20 mg PO DAILY 01/05/18 01/05/18 History Exam Vital signs: Vital Signs 01/05/18 12:18 01/05/18 17:28 01/05/18 17:29 Temperature 97.8 F Pulse Rate 84 80 Respiratory Rate 18 15 Blood Pressure 173/70 H 149/67 H Pulse Oximetry 95 95 95 01/05/18 21:00 01/06/18 00:05 01/06/18 04:00 Temperature 97.8 F 97.9 F Pulse Rate 74 78 78 Respiratory Rate 16 18 18 Blood Pressure 134/66 113/71 145/77 H Pulse Oximetry 92 L 94 L 01/06/18 08:00 Temperature 98.0 F Pulse Rate 84 Respiratory Rate 20 Blood Pressure 148/79 H Pulse Oximetry 95 Intake & Output 01/05/18 01/06/18 01/06/18 18:59 06:59 18:59 Intake Total 0 / 0 Output Total 1700 / 1700 Balance -1700 / -1700 Weight 123.831 kg 127 kg Intake: Oral 0 / 0 Output: Urine 1700 / 1700 Other: Date of Last Bowel Movement 01/06/18 # Bowel Movements 0 Weight On Admission 126.9 kg - Constitutional no acute distress (At rest, obese) - Routine HEENT Exam Head: Present: normocephalic, atraumatic Eye: Present: EOMI ENT: Present: mucous membranes moist - Routine Neck Exam Present: supple (, Obese) - Routine Respiratory Exam Present: decreased breath sounds (Mild but no obvious rhonchi or wheezing) - Routine Cardiovascular Exam Present: RRR (History of DVT left leg) - Routine Abdominal Exam Present: soft, normoactive bowel sounds - Routine Extremities Exam Present: normal capillary refill - Routine Skin Exam Present: intact - Routine Neurological Exam Present: alert (Fair to good historian) Results - Labs CBC & Chem 7: 01/06/18 07:50 01/06/18 02:01 Labs: Laboratory Results - last 24 hr 01/05/18 01/05/18 01/05/18 17:40 17:40 17:40 WBC 5.2 RBC 3.44 L Hgb 10.9 L Hct 31.6 L MCV 91.8 MCH 31.8 MCHC 34.6 RDW 15.7 Plt Count 238 MPV 8.4 Neut % (Auto) 65.2 Lymph % (Auto) 25.7 [place] % (Auto) 6.2 Eos % (Auto) 2.5 Baso % (Auto) 0.4 Neut # (Auto) 3.4 Lymph # (Auto) 1.3 [place] # (Auto) 0.3 Eos # (Auto) 0.1 Baso # (Auto) 0.0 WBC Differential . Differential Comment Auto diff final PT 10.3 INR 1.0 APTT 27.5 Sodium 143 Potassium 3.4 L Chloride 107 Carbon Dioxide 25.0 Anion Gap 11 BUN 13 Creatinine 0.82 Estimated GFR 71 L Random Glucose 78 Calcium 8.6 Total Bilirubin 1.4 H AST 17 ALT 26 Alkaline Phosphatase 131 H Total Protein 7.3 D Albumin 3.6 Lipase 39 L Urine Color Urine Clarity Urine pH Ur Specific [place] Urine Protein Urine Glucose (UA) Urine Ketones Urine Occult Blood Urine Nitrate Urine Bilirubin Urine Urobilinogen Ur Leukocyte Esterase Urine WBC Ur Squamous Epith Cells Amorphous Sediment Urine Bacteria Urine Mucus Micro UA Comment Urine Culture Comments Blood Type Blood Type Recheck Antibody Screen 01/05/18 01/06/18 01/06/18 17:40 02:01 02:01 WBC 5.3 RBC 3.38 L Hgb 10.5 L Hct 30.5 L MCV 90.3 MCH 31.2 MCHC 34.5 RDW 15.7 Plt Count 245 MPV 7.9 Neut % (Auto) 62.4 Lymph % (Auto) 28.3 [place] % (Auto) 6.0 Eos % (Auto) 2.9 Baso % (Auto) 0.4 Neut # (Auto) 3.3 Lymph # (Auto) 1.5 [place] # (Auto) 0.3 Eos # (Auto) 0.2 Baso # (Auto) 0.0 WBC Differential . Differential Comment Auto diff final PT 10.7 INR 1.1 APTT Sodium Potassium Chloride Carbon Dioxide Anion Gap BUN Creatinine Estimated GFR Random Glucose Calcium Total Bilirubin AST ALT Alkaline Phosphatase Total Protein Albumin Lipase Urine Color Urine Clarity Urine pH Ur Specific [place] Urine Protein Urine Glucose (UA) Urine Ketones Urine Occult Blood Urine Nitrate Urine Bilirubin Urine Urobilinogen Ur Leukocyte Esterase Urine WBC Ur Squamous Epith Cells Amorphous Sediment Urine Bacteria Urine Mucus Micro UA Comment Urine Culture Comments Blood Type B Positive Blood Type Recheck Required Antibody Screen Negative 01/06/18 01/06/18 01/06/18 02:01 02:40 07:50 WBC 4.6 RBC 3.22 L Hgb 10.1 L Hct 29.1 L MCV 90.6 MCH 31.4 MCHC 34.7 RDW 15.7 Plt Count 234 MPV 8.4 Neut % (Auto) 62.9 Lymph % (Auto) 25.6 [place] % (Auto) 7.4 Eos % (Auto) 3.5 Baso % (Auto) 0.6 Neut # (Auto) 2.9 Lymph # (Auto) 1.2 [place] # (Auto) 0.3 Eos # (Auto) 0.2 Baso # (Auto) 0.0 WBC Differential . Differential Comment Auto diff final PT INR APTT Sodium 144 Potassium 3.2 L Chloride 108 H Carbon Dioxide 26.1 Anion Gap 10 BUN 13 Creatinine 0.75 Estimated GFR 79 L Random Glucose 91 Calcium 8.2 L Total Bilirubin 1.5 H AST 16 ALT 26 Alkaline Phosphatase 121 H Total Protein 6.8 Albumin 3.8 Lipase 48 L Urine Color Colorless Urine Clarity Clear Urine pH 5.0 Ur Specific [place] 1.005 Urine Protein Negative Urine Glucose (UA) Negative Urine Ketones Trace H Urine Occult Blood Small H Urine Nitrate Negative Urine Bilirubin Negative Urine Urobilinogen Less than 2 Ur Leukocyte Esterase Trace H Urine WBC Less than 1 Ur Squamous Epith Cells 1 Amorphous Sediment Rare H Urine Bacteria Rare H Urine Mucus Few H Micro UA Comment Culture not ind Urine Culture Comments Culture not ind Blood Type Blood Type Recheck Antibody Screen Assessment and Plan (1) Bright red rectal bleeding Status: Acute Code(s): K62.5 - Hemorrhage of anus and rectum (2) Hx of senior care use of blood thinners Status: Acute Code(s): Z92.29 - Personal history of other drug therapy - Plan Bright red rectal bleeding 24 hours of admission. Currently patient denies any bleeding except with some straining and defecation. Patient has been on Xarelto for history of DVT but has not taken any Xarelto in 6 days. Patient does note history of constipation and straining with average bowel movement every 2-3 days. Patient had EGD in 08/2017 which showed hiatal hernia and GERD. She is currently on omeprazole 20 mg daily and Zantac at night which controls her symptoms of dyspepsia and reflux. Patient denies any hematemesis Recent history of possible viral gastroenteritis with nausea vomiting and diarrhea for 2-3 days which subsided on its own Anemia current hemoglobin 10.1, INR 1.1, unknown if this is acute or chronic or both. Hyperbilirubinemia without any known history of liver disease. Alkaline phosphatase 121, lipase 48,. Patient denies any history of smoking alcohol or illicit drugs Plan Clear liquids today Consent for colonoscopy with [facility] for a.m. 01/07/2018 N.p.o. at midnight tonight Prep GoLYTELY to start this afternoon around 1500 Monitor any intake and output and bright red rectal bleeding PPI Initiate liver workup labs Ultrasound of the liver Further recommendations to follow Patient was seen per myself and Dr. Amezcua, this note was written on her behalf
[2018-01-06 12:36] LABS: Hemoglobin A1c 5.7 % (4.3-6.0)
[2018-01-06] MEDS: Insulin NovoLOG Aspart Correctional Sugar Inj SQ SCH ×2 (13:09→17:08)
[2018-01-06] MEDS ORDERED: PEG 3350/E-Lyte Soln 4000 ML Bottle PO ONE (15:00)
[2018-01-06 17:06] LABS: Hematocrit 32.1 % (35.0-46.0); Hemoglobin 11.1 gm/dL (11.6-15.3); Mean Corpuscular HGB Conc 34.7 % (32.0-36.0); Mean Corpuscular Hemoglobin 31.5 pg (27.0-34.0); Mean Corpuscular Volume 90.6 fL (80.0-100.0); Mean Platelet Volume 7.9 fL (7.0-11.0); Platelet Count 270 th/mm3 (150-450); Red Blood Count 3.54 mil/mm3 (4.00-5.30); Red Cell Distribution Width 15.8 % (11.6-17.2); White Blood Count 4.5 th/mm3 (4.0-11.0)
[2018-01-06 17:35] LABS: Albumin 3.9 g/dL (3.4-5.0)
[2018-01-06 17:38] LABS: Alpha Fetoprotein Tumor Marker 5.5 ng/mL (0.5-8.0); Total Protein 7.1 g/dL (6.4-8.2)
[2018-01-06 22:06] LABS: Hematocrit 31.6 % (35.0-46.0); Hemoglobin 11.1 gm/dL (11.6-15.3); Mean Corpuscular Hemoglobin 31.6 pg (27.0-34.0); Platelet Count 282 th/mm3 (150-450); Red Blood Count 3.51 mil/mm3 (4.00-5.30); Red Cell Distribution Width 15.8 % (11.6-17.2); White Blood Count 4.7 th/mm3 (4.0-11.0)
[2018-01-07] MEDS: Insulin NovoLOG Aspart Correctional Sugar Inj SQ SCH ×4 (01:10→16:37)
[2018-01-07] MEDS: Pantoprazole Inj 40 MG Vial IV.PUSH SCH (02:14)
[2018-01-07] MEDS: Sod Chloride 0.9% Inj 1,000 ML IV.CONT SCH ×3 (02:15→21:15)
[2018-01-07] MEDS: Levothyroxine 50 MCG Tablet PO SCH (05:55)
[2018-01-07 07:30] LABS: Baso % (Auto) 0.5 % (0.0-2.0); Eos # (Auto) 0.2 th/mm3 (0.0-0.4); Eos % (Auto) 4.4 % (0.0-4.0); Hematocrit 29.8 % (35.0-46.0); Hemoglobin 10.3 gm/dL (11.6-15.3); Lymph # (Auto) 1.4 th/mm3 (1.0-4.8); Lymph % (Auto) 33.6 % (9.0-44.0); Mean Corpuscular HGB Conc 34.4 % (32.0-36.0); Mean Corpuscular Hemoglobin 30.9 pg (27.0-34.0); Mean Corpuscular Volume 89.7 fL (80.0-100.0); Mean Platelet Volume 7.7 fL (7.0-11.0); Mono # (Auto) 0.4 th/mm3 (0.0-0.9); Mono % (Auto) 10.4 % (0.0-8.0); Neut # (Auto) 2.2 th/mm3 (1.8-7.7); Neut % (Auto) 51.1 % (16.0-70.0); Platelet Count 249 th/mm3 (150-450); Red Blood Count 3.32 mil/mm3 (4.00-5.30); Red Cell Distribution Width 15.9 % (11.6-17.2); White Blood Count 4.3 th/mm3 (4.0-11.0)
[2018-01-07] MEDS ORDERED: Chlorhexidine Gluconate 2% 1 Pack (2 Cloths) TOPICAL SCH (07:30)
[2018-01-07] MEDS ORDERED: Metoprolol Tartrate 25 MG Tablet PO SCH (07:30)
[2018-01-07 07:52] LABS: Alanine Aminotransferase 18 U/L (10-53); Albumin 3.5 g/dL (3.4-5.0); Alkaline Phosphatase 109 U/L (45-117); Anion Gap 9 meq/L (5-15); Aspartate Aminotransferase 15 U/L (15-37); Blood Urea Nitrogen 10 mg/dL (7-18); Calcium 8.7 mg/dL (8.5-10.1); Carbon Dioxide 29.5 meq/L (21.0-32.0); Chloride 104 meq/L (98-107); Glomerular Filtration Rate 69 mL/min (>89); Glucose,Random 102 mg/dL (74-106); Sodium 142 meq/L (136-145); Total Protein 6.5 g/dL (6.4-8.2)
[2018-01-07] MEDS ORDERED: Sodium Chlor 0.9% Inj 500 ML IV.SIG SCH (08:00)
[2018-01-07] MEDS: Famotidine 20 MG Tablet PO SCH ×2 (08:02→21:14)
[2018-01-07 08:43] LABS: Potassium 2.9 meq/L (3.5-5.1)
--- NOTE | 2018-01-07 10:12 | P.PNFP ---
Subjective Interval history: Patient was seen and examined this morning. She has completed GoLYTELY prep and has clear liquid stools most recently this morning. No blood in her stool. She does note left-sided abdominal pain after one episode of vomiting last night. The vomiting was directly associated with GoLYTELY prep per her report and was an isolated episode. She has not had anything to eat since midnight. She is awaiting colonoscopy this morning. She denies fevers, chills, chest pain , shortness of breath, and reports she is ambulating without difficulty. <Courtney Beaulieu - 01/07/18 10:11> Results - Labs Result diagrams: 01/07/18 06:40 01/07/18 06:40 <Reji Gan - 01/07/18 12:46> Abnormal lab results 01/06/18 01/06/18 01/06/18 Range/Units 16:40 16:40 21:22 RBC 3.54 L 3.51 L (4.00-5.30) mil/mm3 Hgb 11.1 L 11.1 L (11.6-15.3) gm/dL Hct 32.1 L 31.6 L (35.0-46.0) % Hawkins % (Auto) (0.0-8.0) % Eos % (Auto) (0.0-4.0) % Potassium (3.5-5.1) meq/L Estimated GFR (>89) mL/min POC Glucose (68-110) mg/dl Total Bilirubin 1.5 H (0.2-1.0) mg/dL Direct Bilirubin 0.3 H (0.0-0.2) mg/dL Indirect Bilirubin 1.2 H (0.0-0.8) mg/dL Alkaline Phosphatase 122 H (45-117) U/L 01/07/18 01/07/18 01/07/18 Range/Units 06:40 06:40 07:22 RBC 3.32 L (4.00-5.30) mil/mm3 Hgb 10.3 L (11.6-15.3) gm/dL Hct 29.8 L (35.0-46.0) % Hawkins % (Auto) 10.4 H (0.0-8.0) % Eos % (Auto) 4.4 H (0.0-4.0) % Potassium 2.9 L* (3.5-5.1) meq/L Estimated GFR 69 L (>89) mL/min POC Glucose 116 H (68-110) mg/dl Total Bilirubin 1.6 H (0.2-1.0) mg/dL Direct Bilirubin (0.0-0.2) mg/dL Indirect Bilirubin (0.0-0.8) mg/dL Alkaline Phosphatase (45-117) U/L 01/07/18 Range/Units 12:26 RBC (4.00-5.30) mil/mm3 Hgb (11.6-15.3) gm/dL Hct (35.0-46.0) % Hawkins % (Auto) (0.0-8.0) % Eos % (Auto) (0.0-4.0) % Potassium (3.5-5.1) meq/L Estimated GFR (>89) mL/min POC Glucose 119 H (68-110) mg/dl Total Bilirubin (0.2-1.0) mg/dL Direct Bilirubin (0.0-0.2) mg/dL Indirect Bilirubin (0.0-0.8) mg/dL Alkaline Phosphatase (45-117) U/L Short CBC 01/06/18 01/06/18 01/07/18 Range/Units 16:40 21:22 06:40 WBC 4.5 4.7 4.3 (4.0-11.0) th/mm3 Hgb 11.1 L 11.1 L 10.3 L (11.6-15.3) gm/dL Hct 32.1 L 31.6 L 29.8 L (35.0-46.0) % Plt Count 270 282 249 (150-450) th/mm3 [facility] 01/07/18 06:40 Sodium 142 Potassium 2.9 L* Chloride 104 Carbon Dioxide 29.5 BUN 10 Creatinine 0.84 Calcium 8.7 Liver Function 01/06/18 01/07/18 Range/Units 16:40 06:40 Total Bilirubin 1.5 H 1.6 H (0.2-1.0) mg/dL Direct Bilirubin 0.3 H (0.0-0.2) mg/dL AST 17 15 (15-37) U/L ALT 22 18 (10-53) U/L Alkaline Phosphatase 122 H 109 (45-117) U/L Albumin 3.9 3.5 (3.4-5.0) g/dL <Reji Gan - 01/07/18 12:46> Abnormal lab results 01/06/18 01/06/18 01/06/18 Range/Units 07:50 16:40 16:40 RBC 3.22 L 3.54 L (4.00-5.30) mil/mm3 Hgb 10.1 L 11.1 L (11.6-15.3) gm/dL Hct 29.1 L 32.1 L (35.0-46.0) % Hawkins % (Auto) (0.0-8.0) % Eos % (Auto) (0.0-4.0) % Potassium (3.5-5.1) meq/L Estimated GFR (>89) mL/min POC Glucose (68-110) mg/dl Total Bilirubin 1.5 H (0.2-1.0) mg/dL Direct Bilirubin 0.3 H (0.0-0.2) mg/dL Indirect Bilirubin 1.2 H (0.0-0.8) mg/dL Alkaline Phosphatase 122 H (45-117) U/L 01/06/18 01/07/18 01/07/18 Range/Units 21:22 06:40 06:40 RBC 3.51 L 3.32 L (4.00-5.30) mil/mm3 Hgb 11.1 L 10.3 L (11.6-15.3) gm/dL Hct 31.6 L 29.8 L (35.0-46.0) % Hawkins % (Auto) 10.4 H (0.0-8.0) % Eos % (Auto) 4.4 H (0.0-4.0) % Potassium 2.9 L* (3.5-5.1) meq/L Estimated GFR 69 L (>89) mL/min POC Glucose (68-110) mg/dl Total Bilirubin 1.6 H (0.2-1.0) mg/dL Direct Bilirubin (0.0-0.2) mg/dL Indirect Bilirubin (0.0-0.8) mg/dL Alkaline Phosphatase (45-117) U/L 01/07/18 Range/Units 07:22 RBC (4.00-5.30) mil/mm3 Hgb (11.6-15.3) gm/dL Hct (35.0-46.0) % Hawkins % (Auto) (0.0-8.0) % Eos % (Auto) (0.0-4.0) % Potassium (3.5-5.1) meq/L Estimated GFR (>89) mL/min POC Glucose 116 H (68-110) mg/dl Total Bilirubin (0.2-1.0) mg/dL Direct Bilirubin (0.0-0.2) mg/dL Indirect Bilirubin (0.0-0.8) mg/dL Alkaline Phosphatase (45-117) U/L Short CBC 01/06/18 01/06/18 01/06/18 Range/Units 07:50 16:40 21:22 WBC 4.6 4.5 4.7 (4.0-11.0) th/mm3 Hgb 10.1 L 11.1 L 11.1 L (11.6-15.3) gm/dL Hct 29.1 L 32.1 L 31.6 L (35.0-46.0) % Plt Count 234 270 282 (150-450) th/mm3 01/07/18 Range/Units 06:40 WBC 4.3 (4.0-11.0) th/mm3 Hgb 10.3 L (11.6-15.3) gm/dL Hct 29.8 L (35.0-46.0) % Plt Count 249 (150-450) th/mm3 BMP 01/07/18 06:40 Sodium 142 Potassium 2.9 L* Chloride 104 Carbon Dioxide 29.5 BUN 10 Creatinine 0.84 Calcium 8.7 Liver Function 01/06/18 01/07/18 Range/Units 16:40 06:40 Total Bilirubin 1.5 H 1.6 H (0.2-1.0) mg/dL Direct Bilirubin 0.3 H (0.0-0.2) mg/dL AST 17 15 (15-37) U/L ALT 22 18 (10-53) U/L Alkaline Phosphatase 122 H 109 (45-117) U/L Albumin 3.9 3.5 (3.4-5.0) g/dL <Courtney Beaulieu L - 01/07/18 10:11> Physical Exam Vital signs: Vital Signs 01/06/18 16:00 01/06/18 20:00 01/07/18 00:00 Temperature 98.1 F 98.2 F 97.9 F Pulse Rate 84 78 72 Respiratory Rate 20 18 18 Blood Pressure 98/54 L 130/75 115/62 Pulse Oximetry 93 L 93 L 94 L 01/07/18 04:00 01/07/18 05:53 01/07/18 08:00 Temperature 98.2 F 98.2 F Pulse Rate 72 69 Respiratory Rate 18 12 18 Blood Pressure 125/56 L 102/55 L Pulse Oximetry 92 L 94 L Intake & Output 01/06/18 01/07/18 01/07/18 18:59 06:59 18:59 Intake Total 2480 / 2480 1340 / 1340 1100 / 1100 Balance 2480 / 2480 1340 / 1340 1100 / 1100 Weight 125.1 kg Intake: IV 1999 / 1999 1100 / 1100 1100 / 1100 NS Inj 1,000 ML @ 125 mls/hr IV 1999 / 1999 1000 / 1000 1000 / 1000 .CONT .Q8H SUNG Rx#:[id number] Ofirmev Inj 1,000 mg In 100 ml 100 / 100 @ 400 mls/hr IV.SIG Q6H SUNG Rx# :[id number] KCl 20 mEq Premix Inj 20 meq In 100 / 100 100 ml @ 50 mls/hr IV.SIG Q2H SUNG Rx#:[id number] Oral 480 / 480 240 / 240 Other: # Voids 4 6 Date of Last Bowel Movement 01/07/18 # Bowel Movements 3 7 <Reji Gan - 01/07/18 12:46> Vital Signs 01/06/18 12:00 01/06/18 16:00 01/06/18 20:00 Temperature 97.8 F 98.1 F 98.2 F Pulse Rate 78 84 78 Respiratory Rate 20 20 18 Blood Pressure 139/62 98/54 L 130/75 Pulse Oximetry 96 93 L 93 L 01/07/18 00:00 01/07/18 04:00 01/07/18 05:53 Temperature 97.9 F 98.2 F Pulse Rate 72 72 Respiratory Rate 18 18 12 Blood Pressure 115/62 125/56 L Pulse Oximetry 94 L 92 L 01/07/18 08:00 Temperature 98.2 F Pulse Rate 69 Respiratory Rate 18 Blood Pressure 102/55 L Pulse Oximetry 94 L Intake & Output 01/06/18 01/07/18 01/07/18 18:59 06:59 18:59 Intake Total 2480 / 2480 1240 / 1240 Balance 2480 / 2480 1240 / 1240 Weight 125.1 kg Intake: IV 1999 1000 / 1000 NS Inj 1,000 ML @ 125 mls/hr IV 1999 1000 / 1000 .CONT .Q8H SUNG Rx#:[id number] Oral 480 / 480 240 / 240 Other: # Voids 4 6 Date of Last Bowel Movement 01/07/18 # Bowel Movements 3 7 <Courtney Beaulieu - 01/07/18 10:11> Narrative: GENERAL: Obese female in no apparent distress. SKIN: Warm and dry. No rashes or ecchymoses. HEAD: Atraumatic. Normocephalic. EYES: Pupils equal and round. No scleral icterus. No injection or drainage. ENT: No nasal bleeding or discharge. Mucous membranes pink and moist. NECK: Trachea midline. No JVD. CARDIOVASCULAR: Regular rate and rhythm. No murmurs RESPIRATORY: No accessory muscle use. Clear to auscultation. Breath sounds equal bilaterally. GASTROINTESTINAL: Abdomen soft, non-tender, obese, nondistended. Bowel sounds mildly hyperactive. MUSCULOSKELETAL: Chronic nonpitting edema bilaterally with surgical scar over left knee, well-healed. No cyanosis. NEUROLOGICAL: Awake and alert. No obvious cranial nerve deficits. Motor grossly within normal limits. Normal speech. PSYCHIATRIC: Appropriate mood and affect; insight and judgment normal. <Courtney Beaulieu - 01/07/18 10:11> Assessment and Plan - Assessment (1) Bright red rectal bleeding Code(s): K62.5 - Hemorrhage of anus and rectum Status: Acute (2) DVT (deep venous thrombosis) Code(s): I82.409 - Acute embolism and thrombosis of unspecified deep veins of unspecified lower extremity Status: Chronic (3) Diabetes Code(s): E11.9 - Type 2 diabetes mellitus without complications Status: Acute (4) Hypothyroidism Code(s): E03.9 - Hypothyroidism, unspecified Status: Chronic (5) CKD (chronic kidney disease) stage 3, GFR 30-59 ml/min Code(s): N18.3 - Chronic kidney disease, stage 3 (moderate) Status: Chronic (6) Hypertension Code(s): I10 - Essential (primary) hypertension Status: Chronic (7) Hypokalemia due to loss of potassium Code(s): E87.6 - Hypokalemia Status: Acute <Reji Gan - 01/07/18 12:46> (1) Bright red rectal bleeding Code(s): K62.5 - Hemorrhage of anus and rectum Status: Acute Plan: Hemodynamically stable. Hemoglobin 10.9 on arrival, 11.1 on most recent H&H Trend H&H and replenish as needed with goal hemoglobin greater than 8 Patient did receive IV Ofirmev last night for abdominal pain which has resolved , will continue to monitor, suspect MSK strain related to vomiting episode Anticipate discharge home if colonoscopy unremarkable Differential includes upper versus lower GI bleed versus diverticulosis versus gastroenteritis History of GERD and dark stools supports upper GI bleed Hemoccult in ED positive, no sign of hemorrhoids or fissure, no active bleeding Discontinue telemetry today Follow-up GI consult recommendations, patient's private GI has been consulted N.p.o. after midnight Type and screen, coags ordered IV Protonix 40 mg daily, likely will transition to p.o. Protonix of the same dose at discharge CT from 01/02/18: Scattered diverticulosis of the descending and sigmoid colon. No acute pathology. (2) DVT (deep venous thrombosis) Code(s): I82.409 - Acute embolism and thrombosis of unspecified deep veins of unspecified lower extremity Status: Chronic Plan: Due to acute bleeding, continue to hold Xarelto. Will likely continue Xarelto upon discharge if colonoscopy unremarkable. SCDs (3) Diabetes Code(s): E11.9 - Type 2 diabetes mellitus without complications Status: Acute Plan: Hold home metformin Glucose 78, Will add sliding scale when patient is advanced to p.o. A1c 5.7, excellent (4) Hypothyroidism Code(s): E03.9 - Hypothyroidism, unspecified Status: Chronic Plan: Continue current home dose of levothyroxine 150 mcg daily (5) CKD (chronic kidney disease) stage 3, GFR 30-59 ml/min Code(s): N18.3 - Chronic kidney disease, stage 3 (moderate) Status: Chronic Plan: Continue to follow-up with truck guard as outpatient. Avoid NSAIDs and other nephrotoxic medications. (6) Hypertension Code(s): I10 - Essential (primary) hypertension Status: Chronic Plan: Per EMR patient has hypertension, however, home med rec does not include antihypertensive medication. BP has been within normal limits as auscultation. Will continue to monitor for now, patient to follow-up with PCP for further evaluation. For now give Vasotec as needed for SBP > 180/ and/or DBP > 100 (7) Hypokalemia due to loss of potassium Code(s): E87.6 - Hypokalemia Status: Acute Plan: Potassium 2.9 on routine labs this morning, will replete with IV 40 mEq if patient tolerates this with peripheral access. Once procedures completed, will replete with p.o. potassium. Recommend patient have follow-up CMP as outpatient within the next week <Courtney Beaulieu - 01/07/18 09:55> - Assessment and Plan 62F with history of diverticulosis presented with reported GI bleed (BRBPR) at home and Hemoccult positive stool on initial workup. Colonoscopy pending 01/07 with prep completed. Pending results, anticipate possible discharge to home today if colonoscopy is unremarkable. <Courtney Beaulieu - 01/07/18 10:11> - Attending Attestation Pt. examined and case discussed with resident physicians. I have read the above note and agree with the assessment and plan as discussed with me. I was involved in all medical decision making for this patient. Reji Gan MD <Reji Gan - 01/07/18 12:46> <Courtney Beaulieu - Last Filed: 01/07/18 09:55> (2) DVT (deep venous thrombosis) Qualifiers: DVT location: lower extremity Affected thrombotic vein of extremity: unspecified lower extremity distal vein Chronicity: chronic Laterality: left Qualified Code(s): I82.5Z2 - Chronic embolism and thrombosis of unspecified deep veins of left distal lower extremity (3) Diabetes Qualifiers: Diabetes mellitus type: type 2 Diabetes mellitus retirement insulin use: without retirement use Diabetes mellitus complication status: with kidney complications Diabetes mellitus complication detail: with nephropathy Qualified Code(s): E11.21 - Type 2 diabetes mellitus with diabetic nephropathy <Reji Gan - Last Filed: 01/07/18 12:46> (2) DVT (deep venous thrombosis) Qualifiers: DVT location: lower extremity Affected thrombotic vein of extremity: unspecified lower extremity distal vein Chronicity: chronic Laterality: left Qualified Code(s): I82.5Z2 - Chronic embolism and thrombosis of unspecified deep veins of left distal lower extremity (3) Diabetes Qualifiers: Diabetes mellitus type: type 2 Diabetes mellitus retirement insulin use: without retirement use Diabetes mellitus complication status: with kidney complications Diabetes mellitus complication detail: with nephropathy Qualified Code(s): E11.21 - Type 2 diabetes mellitus with diabetic nephropathy <Courtney Beaulieu - Last Filed: 01/07/18 09:55> (2) DVT (deep venous thrombosis) Qualifiers: DVT location: lower extremity Affected thrombotic vein of extremity: unspecified lower extremity distal vein Chronicity: chronic Laterality: left Qualified Code(s): I82.5Z2 - Chronic embolism and thrombosis of unspecified deep veins of left distal lower extremity (3) Diabetes Qualifiers: Diabetes mellitus type: type 2 Diabetes mellitus retirement insulin use: without retirement use Diabetes mellitus complication status: with kidney complications Diabetes mellitus complication detail: with nephropathy Qualified Code(s): E11.21 - Type 2 diabetes mellitus with diabetic nephropathy <Reji Gan - Last Filed: 01/07/18 12:46> (2) DVT (deep venous thrombosis) Qualifiers: DVT location: lower extremity Affected thrombotic vein of extremity: unspecified lower extremity distal vein Chronicity: chronic Laterality: left Qualified Code(s): I82.5Z2 - Chronic embolism and thrombosis of unspecified deep veins of left distal lower extremity (3) Diabetes Qualifiers: Diabetes mellitus type: type 2 Diabetes mellitus retirement insulin use: without retirement use Diabetes mellitus complication status: with kidney complications Diabetes mellitus complication detail: with nephropathy Qualified Code(s): E11.21 - Type 2 diabetes mellitus with diabetic nephropathy
[2018-01-07] MEDS: Potassium Chlor 20 mEq Premix 20 MEQ/100 ML PIGGYBACK IV.SIG SCH (11:34)
[2018-01-07] MEDS ORDERED: Lidocaine PF 1% Inj 5 ML Syringe INFILTRATN ONE (12:00)
--- NOTE | 2018-01-07 17:26 | GIPROC ---
[facility] [address] [facility]. [facility], [address] COLONOSCOPY PROCEDURE REPORT EXAM DATE: 01/07/2018 PATIENT NAME: Adrian White MR #: [id number] BIRTHDATE: 1955 ENDOSCOPIST: Angela Amezcua MD ORDER #: [id number] IC DESIGNER STANDARD CELLS: Linnea Peck STATUS: inpatient INDICATIONS: The patient is a 62 yr old female here for a colonoscopy due to rectal bleeding PROCEDURE PERFORMED: Colonoscopy, diagnostic MEDICATIONS: None and Per Anesthesia. PREP QUALITY: fair PREP TYPE:Other: ESTIMATED BLOOD LOSS: None CONSENT: The patient understands the risks and benefits of the procedure and understands that these risks include, but are not limited to: sedation, allergic reaction, infection, perforation and/or bleeding. Alternative means of evaluation and treatment include, among others: physical exam, x-rays, and/or surgical intervention. The patient elects to proceed with this endoscopic procedure. medical equipment was checked for proper function. Hand hygiene and appropriate measures for infection prevention was taken. After the risks, benefits and alternatives of the procedure were thoroughly explained, Informed consent was verified, confirmed and timeout was successfully executed by the treatment team. A digital exam revealed hemorrhoids The Pentax [id number] endoscope was introduced through the anus and advanced to the cecum, which was identified by both the appendix and ileocecal valve. The instrument was then slowly withdrawn as the colon was fully examined. COLON FINDINGS: Diverticulosis sigmoid,descending internal /external hemorrhoids. Retroflexed views revealed internal hemorrhoids and Retroflexed views revealed small internal hemorrhoids The scope was then completely withdrawn from the patient and the procedure terminated. PROCEDURE WITHDRAWAL TIME:6minutes ADVERSE EVENTS: There were no complications. IMPRESSIONS: 1. Diverticulosis sigmoid,descending internal /external hemorrhoids 2. Retroflexed views revealed internal hemorrhoids 3. Retroflexed views revealed small internal hemorrhoids 4. Revealed hemorrhoids RECOMMENDATIONS: 1. Benefiber 2 tsp daily 2. Probiotics from any [facility] or health food store 3. Yearly rectal exams RECALL: Return 5 years Colonoscopy Angela Amezcua MD eSigned: Angela Amezcua MD 01/07/2018 5:25 PM cc:
[2018-01-08] MEDS: Insulin NovoLOG Aspart Correctional Sugar Inj SQ SCH ×3 (02:45→13:54)
[2018-01-08] MEDS: Pantoprazole Inj 40 MG Vial IV.PUSH SCH (02:45)
[2018-01-08] MEDS: Levothyroxine 50 MCG Tablet PO SCH (05:56)
--- NOTE | 2018-01-08 08:37 | P.PNFP ---
Subjective Interval history: Patient seen and examined this morning. She reports that she feels well and notes that her colonoscopy was yesterday evening. She had tolerated dinner without difficulty. She denies nausea, vomiting, abdominal pain, chest pain. She still has diarrhea as recently as yesterday evening which she reports may have had some old blood in it. She denies any active bleeding. She feels ready to go home and will follow-up in the [facility]. <Courtney Beaulieu - 01/08/18 10:56> Results - Labs Result diagrams: 01/07/18 06:40 01/08/18 11:50 <Reji Gan - 01/08/18 22:53> Abnormal lab results 01/08/18 01/08/18 Range/Units 11:50 11:51 Creatinine 1.05 H (0.50-1.00) mg/dL Estimated GFR 53 L (>89) mL/min POC Glucose 115 H (68-110) mg/dl Random Glucose 108 H (74-106) mg/dL [facility] 01/08/18 11:50 Sodium 142 Potassium 3.6 Chloride 105 Carbon Dioxide 27.2 BUN 10 Creatinine 1.05 H Calcium 9.2 <Reji Gan - 01/08/18 22:53> Abnormal lab results 01/07/18 01/07/18 01/07/18 Range/Units 06:40 12:26 20:56 Potassium 2.9 L* (3.5-5.1) meq/L Estimated GFR 69 L (>89) mL/min POC Glucose 119 H 126 H (68-110) mg/dl Total Bilirubin 1.6 H (0.2-1.0) mg/dL [facility] 01/07/18 06:40 Sodium 142 Potassium 2.9 L* Chloride 104 Carbon Dioxide 29.5 BUN 10 Creatinine 0.84 Calcium 8.7 Liver Function 01/07/18 Range/Units 06:40 Total Bilirubin 1.6 H (0.2-1.0) mg/dL AST 15 (15-37) U/L ALT 18 (10-53) U/L Alkaline Phosphatase 109 (45-117) U/L Albumin 3.5 (3.4-5.0) g/dL <Courtney Beaulieu - 01/08/18 08:37> Physical Exam Vital signs: Vital Signs 01/08/18 00:00 07/08/18 04:00 01/08/18 05:15 Temperature 97.9 F 98.0 F Pulse Rate 66 69 64 Respiratory Rate 18 18 Blood Pressure 115/60 103/57 L Pulse Oximetry 96 94 L 01/08/18 08:00 01/08/18 12:00 Temperature 98.1 F 97.7 F Pulse Rate 62 80 Respiratory Rate 20 20 Blood Pressure 113/56 L 149/67 H Pulse Oximetry 94 L 95 Intake & Output 01/08/18 01/08/18 01/09/18 06:59 18:59 06:59 Intake Total 2099 / 2099 1240 / 1240 Balance 2099 / 2099 1240 / 1240 Weight 122.7 kg Intake: IV 2100 / 2099 1000 / 1000 NS Inj 1,000 ML @ 125 mls/hr IV 1000 / 1000 1000 / 1000 .CONT .Q8H SUNG Rx#:[id number] LR 1000 mL Inj 1,000 ML @ 30 1000 / 1000 mls/hr IV.SIG .Q24H SUNG Rx#: [id number] Oral 240 / 240 Other: # Voids 2 Date of Last Bowel Movement 01/07/18 <MalikEricay - 01/08/18 22:53> Vital Signs 01/07/18 12:00 01/07/18 16:00 01/07/18 17:25 Temperature 97.9 F 98.2 F 98 F Pulse Rate 67 78 66 Respiratory Rate 20 20 20 Blood Pressure 104/52 L 132/63 133/60 Pulse Oximetry 94 L 96 96 01/07/18 17:30 01/07/18 17:46 01/07/18 19:13 Temperature 98 F Pulse Rate 64 69 Respiratory Rate 20 20 Blood Pressure 118/55 L 132/61 Pulse Oximetry 96 96 96 01/07/18 20:00 01/08/18 00:00 01/08/18 04:00 Temperature 97.6 F 97.9 F Pulse Rate 76 66 69 Respiratory Rate 18 18 Blood Pressure 105/63 115/60 Pulse Oximetry 92 L 96 01/08/18 05:15 Temperature 98.0 F Pulse Rate 64 Respiratory Rate 18 Blood Pressure 103/57 L Pulse Oximetry 94 L Intake & Output 01/07/18 01/08/18 01/08/18 18:59 06:59 18:59 Intake Total 1400 / 1400 1100 / 1100 240 / 240 Output Total 1200 / 1200 Balance 200 / 200 1100 / 1100 240 / 240 Weight 122.7 kg Intake: IV 1300 / 1300 1100 / 1100 NS Inj 1,000 ML @ 125 mls/hr IV 1000 / 1000 1000 / 1000 .CONT .Q8H SUNG Rx#:[id number] Ofirmev Inj 1,000 mg In 100 ml 100 / 100 @ 400 mls/hr IV.SIG Q6H SUNG Rx# :[id number] KCl 20 mEq Premix Inj 20 meq In 100 / 100 100 ml @ 50 mls/hr IV.SIG Q2H SUNG Rx#:[id number] Oral 0 / 0 240 / 240 Anesthesia Amount 100 / 100 Output: Urine 1200 / 1200 Other: # Voids 2 <Courtney Beaulieu - 01/08/18 08:37> Narrative: GENERAL: Obese female in no apparent distress. SKIN: Warm and dry. No rashes or ecchymoses. HEAD: Atraumatic. Normocephalic. EYES: Pupils equal and round. No scleral icterus. No injection or drainage. ENT: No nasal bleeding or discharge. Mucous membranes pink and moist. NECK: Trachea midline. No JVD. CARDIOVASCULAR: Regular rate and rhythm. No murmurs RESPIRATORY: No accessory muscle use. Clear to auscultation. Breath sounds equal bilaterally. GASTROINTESTINAL: Abdomen soft, non-tender, obese, nondistended. Bowel sounds normoactive. MUSCULOSKELETAL: Chronic nonpitting edema bilaterally with surgical scar over left knee, well-healed. No cyanosis. NEUROLOGICAL: Awake and alert. No obvious cranial nerve deficits. Motor grossly within normal limits. Normal speech. PSYCHIATRIC: Appropriate mood and affect; insight and judgment normal. <Courtney Beaulieu - 01/08/18 10:56> Assessment and Plan - Assessment (1) Bright red rectal bleeding Code(s): K62.5 - Hemorrhage of anus and rectum Status: Acute (2) DVT (deep venous thrombosis) Code(s): I82.409 - Acute embolism and thrombosis of unspecified deep veins of unspecified lower extremity Status: Chronic (3) Diabetes Code(s): E11.9 - Type 2 diabetes mellitus without complications Status: Acute (4) Hypothyroidism Code(s): E03.9 - Hypothyroidism, unspecified Status: Chronic (5) CKD (chronic kidney disease) stage 3, GFR 30-59 ml/min Code(s): N18.3 - Chronic kidney disease, stage 3 (moderate) Status: Chronic (6) Hypertension Code(s): I10 - Essential (primary) hypertension Status: Chronic (7) Hypokalemia due to loss of potassium Code(s): E87.6 - Hypokalemia Status: Acute <Reji Gan - 01/08/18 22:53> (1) Bright red rectal bleeding Code(s): K62.5 - Hemorrhage of anus and rectum Status: Acute Plan: Hemodynamically stable. Colonoscopy performed yesterday and notable for diverticulosis, internal hemorrhoids, with recommendation for routine follow-up and increasing fiber intake. Hemoglobin 10.9 on arrival, 11.1 on most recent H&H, repeat H&H pending this morning. If within normal limits will discharge home today. Goal hemoglobin greater than 8 Impression/hospital course: On admission, differential includes upper versus lower GI bleed versus diverticulosis versus gastroenteritis History of GERD and dark stools supports upper GI bleed Hemoccult in ED positive, no sign of hemorrhoids or fissure, no active bleeding GI consulted, colonoscopy performed Type and screen, coags ordered IV Protonix 40 mg daily, will transition back to her home p.o. dose of omeprazole 40 mg daily at discharge CT from 01/02/18: Scattered diverticulosis of the descending and sigmoid colon. No acute pathology. (2) DVT (deep venous thrombosis) Code(s): I82.409 - Acute embolism and thrombosis of unspecified deep veins of unspecified lower extremity Status: Chronic Plan: Xarelto was held during authorization, will continue upon discharge (3) Diabetes Code(s): E11.9 - Type 2 diabetes mellitus without complications Status: Acute Plan: Hold home metformin Sliding scale insulin Novolog while inpt, bedside glucose wnl A1c 5.7, excellent (4) Hypothyroidism Code(s): E03.9 - Hypothyroidism, unspecified Status: Chronic Plan: Continue current home dose of levothyroxine 150 mcg daily (5) CKD (chronic kidney disease) stage 3, GFR 30-59 ml/min Code(s): N18.3 - Chronic kidney disease, stage 3 (moderate) Status: Chronic Plan: Continue to follow-up with manager of health as outpatient. Avoid NSAIDs and other nephrotoxic medications. (6) Hypertension Code(s): I10 - Essential (primary) hypertension Status: Chronic Plan: Per EMR patient has hypertension, however, home med rec does not include antihypertensive medication. BP has been within normal limits as auscultation. Will continue to monitor for now, patient to follow-up with PCP for further evaluation. For now give Vasotec as needed for SBP > 180/ and/or DBP > 100 (7) Hypokalemia due to loss of potassium Code(s): E87.6 - Hypokalemia Status: Acute Plan: Potassium 2.9 on routine labs this morning, will replete with IV 40 mEq if patient tolerates this with peripheral access. Once procedures completed, will replete with p.o. potassium if indicated. BMP pending 01/08, will replete if needed and recommend patient have follow-up CMP as outpatient <Courtney Beaulieu - 01/08/18 10:50> - Assessment and Plan 62F with history of diverticulosis presented with reported GI bleed (BRBPR) at home and Hemoccult positive stool on initial workup. Colonoscopy 01/07 showing no acute bleed, with findings consistent with chronic diverticulosis and internal hemorrhoids. Discharge home 01/08 with routine outpatient follow-up <Courtney Beaulieu - 01/08/18 10:56> Discussed Condition With: Dr. Gan, attending <Courtney Beaulieu - 01/08/18 10:56> Discharge Planning: DC home today as noted <Courtney Beaulieu - 01/08/18 10:56> - Attending Attestation Pt. examined and case discussed with resident physicians. I have read the above note and agree with the assessment and plan as discussed with me. I was involved in all medical decision making for this patient. Reji Gan MD <Reji Gan - 01/08/18 22:53> <Courtney Beaulieu - Last Filed: 01/08/18 10:50> (2) DVT (deep venous thrombosis) Qualifiers: DVT location: lower extremity Affected thrombotic vein of extremity: unspecified lower extremity distal vein Chronicity: chronic Laterality: left Qualified Code(s): I82.5Z2 - Chronic embolism and thrombosis of unspecified deep veins of left distal lower extremity (3) Diabetes Qualifiers: Diabetes mellitus type: type 2 Diabetes mellitus long-term insulin use: without adjunct faculty for medical terminology use Diabetes mellitus complication status: with kidney complications Diabetes mellitus complication detail: with nephropathy Qualified Code(s): E11.21 - Type 2 diabetes mellitus with diabetic nephropathy <Reji Gan - Last Filed: 01/08/18 22:53> (2) DVT (deep venous thrombosis) Qualifiers: DVT location: lower extremity Affected thrombotic vein of extremity: unspecified lower extremity distal vein Chronicity: chronic Laterality: left Qualified Code(s): I82.5Z2 - Chronic embolism and thrombosis of unspecified deep veins of left distal lower extremity (3) Diabetes Qualifiers: Diabetes mellitus type: type 2 Diabetes mellitus long-term insulin use: without long-term use Diabetes mellitus complication status: with kidney complications Diabetes mellitus complication detail: with nephropathy Qualified Code(s): E11.21 - Type 2 diabetes mellitus with diabetic nephropathy <Courtney Beaulieu - Last Filed: 01/08/18 10:50> (2) DVT (deep venous thrombosis) Qualifiers: DVT location: lower extremity Affected thrombotic vein of extremity: unspecified lower extremity distal vein Chronicity: chronic Laterality: left Qualified Code(s): I82.5Z2 - Chronic embolism and thrombosis of unspecified deep veins of left distal lower extremity (3) Diabetes Qualifiers: Diabetes mellitus type: type 2 Diabetes mellitus adjunct faculty for medical terminology insulin use: without long-term use Diabetes mellitus complication status: with kidney complications Diabetes mellitus complication detail: with nephropathy Qualified Code(s): E11.21 - Type 2 diabetes mellitus with diabetic nephropathy <Reji Gan - Last Filed: 01/08/18 22:53> (2) DVT (deep venous thrombosis) Qualifiers: DVT location: lower extremity Affected thrombotic vein of extremity: unspecified lower extremity distal vein Chronicity: chronic Laterality: left Qualified Code(s): I82.5Z2 - Chronic embolism and thrombosis of unspecified deep veins of left distal lower extremity (3) Diabetes Qualifiers: Diabetes mellitus type: type 2 Diabetes mellitus adjunct faculty for medical terminology insulin use: without adjunct faculty for medical terminology use Diabetes mellitus complication status: with kidney complications Diabetes mellitus complication detail: with nephropathy Qualified Code(s): E11.21 - Type 2 diabetes mellitus with diabetic nephropathy
--- NOTE | 2018-01-08 08:41 | P.DS ---
Date of admission: 01/05/18 22:17 Primary care physician: Pramod Parisi MD, R3 Attending physician on discharge: Reji Gan Anticipated date of discharge: 01/08/18 Brief History from admission: 62-year-old female presenting with bright red blood per rectum 2 on day of presentation. She has a history of DVT and was being treated with Xarelto, however she has discontinued this since Tuesday due to nausea/vomiting and diarrhea for several days. She says that on Tuesday she began having nausea and vomiting associated with diarrhea, however she did not note any hematemesis or melena/hematochezia until yesterday when she had 2 episodes of bright red blood in her bowel movements. She states she has been off of her Xarelto for 5 days. She has not had any abdominal pain or cramping with this. She denies any fevers or chills. She denies any nausea or vomiting. She has a hiatal hernia and has acid reflux. Has been taking famotidine and PPI . Endoscopy 2 months ago for severe GERD showing hiatal hernia DS: Diagnosis - Discharge Diagnosis (1) Bright red rectal bleeding Status: Acute (2) DVT (deep venous thrombosis) Status: Chronic (3) Diabetes Status: Acute (4) Hypothyroidism Status: Chronic (5) CKD (chronic kidney disease) stage 3, GFR 30-59 ml/min Status: Chronic (6) Hypertension Status: Chronic (7) Hypokalemia due to loss of potassium Status: Acute DS: Medications - Discharge Medications Prescriptions: pantoprazole 40 mg PO DAILY 30 Days #60 tab DS: Summary Hospital Course: 62-year-old female with history of DVT on Xarelto, diverticulosis, GERD who presented with acute GI bleed at home. Hemoglobin was stable showing mild anemia at admission and on serial lab work but Hemoccult was positive. CT from : Scattered diverticulosis of the descending and sigmoid colon. No acute pathology. Given bright red blood per rectum colonoscopy was planned per GI were consulted on admission. Colonoscopy was performed after prep completed on 01/07 and report shows diverticulosis with internal hemorrhoids. They recommend follow-up colonoscopy in 5 years, increase fiber intake, increased probiotic use. She was using omeprazole at home and this will be continued at time of discharge on 01/08. Patient is again noted to have history of DVT on Xarelto. Xarelto was held during this hospitalization however will continue at discharge given risk for proliferation of clot if Xarelto continues to be held. No acute bleeds noted during hospitalization and hemoglobin remained stable on serial exams. Chronic diseases were managed as noted below: * Diabetes: Metformin held, sliding scale NovoLog used, A1c in hospital was 5.7 , excellent * Hypothyroidism: Continued home dose of levothyroxine 150 mcg daily * CKD stage III-IV: We avoided nephrotoxic agents, patient to continue to follow -up as outpatient with cardiopulmonary technologist chief * Hypertension: BP within normal limits during his position, patient may not have hypertension, no medications given for this Patient was noted to have hypokalemia during authorization, repleted monitored while in hospital. She is asymptomatic. Recommend follow-up BMP and CBC as outpatient. PCP is Dr. Pramod Parisi in the [facility]. Patient will follow-up within 1 week. - Time Spent with Patient Total time spent providing and/or coordinating discharge services: - Quality: VTE Deep Vein Thrombosis/Pulmonary Embolism Present on Admission: No Exam Vital signs: Vital Signs 01/07/18 12:00 01/07/18 16:00 01/07/18 17:25 Temperature 97.9 F 98.2 F 98 F Pulse Rate 67 78 66 Respiratory Rate 20 20 20 Blood Pressure 104/52 L 132/63 133/60 Pulse Oximetry 94 L 96 96 01/07/18 17:30 01/07/18 17:46 01/07/18 19:13 Temperature 98 F Pulse Rate 64 69 Respiratory Rate 20 20 Blood Pressure 118/55 L 132/61 Pulse Oximetry 96 96 96 01/07/18 20:00 01/08/18 00:00 01/08/18 04:00 Temperature 97.6 F 97.9 F Pulse Rate 76 66 69 Respiratory Rate 18 18 Blood Pressure 105/63 115/60 Pulse Oximetry 92 L 96 01/08/18 05:15 Temperature 98.0 F Pulse Rate 64 Respiratory Rate 18 Blood Pressure 103/57 L Pulse Oximetry 94 L Intake & Output 01/07/18 01/08/18 01/08/18 18:59 06:59 18:59 Intake Total 1400 / 1400 1100 / 1100 240 / 240 Output Total 1200 / 1200 Balance 200 / 200 1100 / 1100 240 / 240 Weight 122.7 kg Intake: IV 1300 / 1300 1100 / 1100 NS Inj 1,000 ML @ 125 mls/hr IV 1000 / 1000 1000 / 1000 .CONT .Q8H SUNG Rx#:[id number] Ofirmev Inj 1,000 mg In 100 ml 100 / 100 @ 400 mls/hr IV.SIG Q6H SUNG Rx# :[id number] KCl 20 mEq Premix Inj 20 meq In 100 / 100 100 ml @ 50 mls/hr IV.SIG Q2H SUNG Rx#:[id number] Oral 0 / 0 240 / 240 Anesthesia Amount 100 / 100 Output: Urine 1200 / 1200 Other: # Voids 2 Narrative: GENERAL: Obese female in no apparent distress. SKIN: Warm and dry. No rashes or ecchymoses. HEAD: Atraumatic. Normocephalic. EYES: Pupils equal and round. No scleral icterus. No injection or drainage. ENT: No nasal bleeding or discharge. Mucous membranes pink and moist. NECK: Trachea midline. No JVD. CARDIOVASCULAR: Regular rate and rhythm. No murmurs RESPIRATORY: No accessory muscle use. Clear to auscultation. Breath sounds equal bilaterally. GASTROINTESTINAL: Abdomen soft, non-tender, obese, nondistended. Bowel sounds normoactive. MUSCULOSKELETAL: Chronic nonpitting edema bilaterally with surgical scar over left knee, well-healed. No cyanosis. NEUROLOGICAL: Awake and alert. No obvious cranial nerve deficits. Motor grossly within normal limits. Normal speech. PSYCHIATRIC: Appropriate mood and affect; insight and judgment normal. Results Procedures completed during hospitalization: Colonoscopy 01/07, Dr. Amezcua Labs on day of discharge: Labs from last 24 hours 01/08/18 01/07/18 01/07/18 08:17 20:56 16:36 Sodium Potassium Chloride Carbon Dioxide Anion Gap BUN Creatinine Estimated GFR POC Glucose 101 126 H 105 Random Glucose Calcium Total Bilirubin AST ALT Alkaline Phosphatase Total Protein Albumin 01/07/18 01/07/18 12:26 06:40 Sodium 142 Potassium 2.9 L* Chloride 104 Carbon Dioxide 29.5 Anion Gap 9 BUN 10 Creatinine 0.84 Estimated GFR 69 L POC Glucose 119 H Random Glucose 102 Calcium 8.7 Total Bilirubin 1.6 H AST 15 ALT 18 Alkaline Phosphatase 109 Total Protein 6.5 D Albumin 3.5 Discharge Plan - Discharge Disposition Patient Disposition: 01 Discharge Home - Discharge Condition Condition: Stable - Discharge Order Discharge Orders: Discharge Order (Routine); Ordered 01/08/18 Ordered By: Courtney Beaulieu - Discharge Details Anticipated Discharge Date: 01/07/18 Discharge Comment: pending AM labs completed and reviewed 01/08 - Physicians Team Primary Care Provider: Pramod Parisi Attending Provider: Reji Gan Other Providers: Angela Amezcua MD
[2018-01-08] MEDS: Famotidine 20 MG Tablet PO SCH (09:57)
[2018-01-08 12:33] LABS: Calcium 9.2 mg/dL (8.5-10.1); Carbon Dioxide 27.2 meq/L (21.0-32.0); Potassium 3.6 meq/L (3.5-5.1)
[2018-01-08] MEDS ORDERED: Lidocaine PF 1% Inj 5 ML Syringe INFILTRATN ONE (13:49)
[2018-01-11 13:43] LABS: Smooth Muscle Total Auto Abs Positive 1:40 (Negative)
[2018-01-12 03:50] LABS: DS DNA Ab (Crithidia) NEGATIVE (NEGATIVE)
[2018-01-12 19:52] LABS: Ceruloplasmin 34 mg/dL (18-53)
== END 2018-01-08 13:50 | disposition home or self-care (01) ==
LOC: NEDA 12:10 → NEPE 12:10 → NEDA 01-06 → N04 01-06 00:05
PROVIDERS: ADMIT Family Medicine; ATTEND Family Medicine
PROC: COLONOS (2018-01-07 12:30)
DX: E11.42 Type 2 diabetes mellitus with diabetic polyneuropathy; E11.22 Type 2 diabetes mellitus with diabetic chronic kidney disease; Z68.42 Body mass index [BMI] 45.0-49.9, adult; I12.9 Hypertensive chronic kidney disease with stage 1 through stage 4 chronic kidney disease, or unspecified chronic kidney disease; Z79.84 Long term (current) use of oral hypoglycemic drugs; E66.9 Obesity, unspecified; K21.9 Gastro-esophageal reflux disease without esophagitis; E03.9 Hypothyroidism, unspecified; D64.9 Anemia, unspecified; E87.6 Hypokalemia; I89.0 Lymphedema, not elsewhere classified; N18.4 Chronic kidney disease, stage 4 (severe); J45.909 Unspecified asthma, uncomplicated; K57.30 Diverticulosis of large intestine without perforation or abscess without bleeding; K44.9 Diaphragmatic hernia without obstruction or gangrene; Z86.711 Personal history of pulmonary embolism; Z87.891 Personal history of nicotine dependence; K62.5 Hemorrhage of anus and rectum; Z79.01 Long term (current) use of anticoagulants; F41.9 Anxiety disorder, unspecified; F32.9 Major depressive disorder, single episode, unspecified; E78.00 Pure hypercholesterolemia, unspecified; K64.8 Other hemorrhoids; Z86.718 Personal history of other venous thrombosis and embolism